=== PATIENT | male | born 1965 | race Caucasian/White ===

== ENCOUNTER 2018-06-22 18:55 | Emergency (ER) | payer MEDICARE ==
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
--- NOTE | 2018-06-22 21:43 | XR ---
EXAMINATION TYPE: XR chest 2V DATE OF EXAM: 06/22/2018 COMPARISON: NONE HISTORY: Cough TECHNIQUE: Frontal and lateral views of the chest are obtained. FINDINGS: Heart and mediastinum are normal. Lungs are clear of consolidation. There is no heart fail ure. Costophrenic angles are clear. Bony thorax is intact. IMPRESSION: No active cardiopulmonary disease. Normal heart.
--- NOTE | 2018-06-22 21:44 | XR ---
EXAMINATION TYPE: XR knee complete LT DATE OF EXAM: 06/22/2018 COMPARISON: NONE HISTORY: Knee pain TECHNIQUE: 3 views FINDINGS: There is no fracture nor dislocation. Joint spaces are normal. There is no sign of joint ef fusion. IMPRESSION: Negative left knee exam.
--- NOTE | 2018-06-22 22:27 | US ---
EXAMINATION TYPE: US venous doppler duplex LE RT DATE OF EXAM: 06/22/2018 10:15 PM COMPARISON: NONE CLINICAL HISTORY: Pain. Right leg pain and edema SIDE PERFORMED: Right TECHNIQUE: The lower extremity deep venous system is examined utilizing real time linear array sonog pauline with graded compression, doppler sonography and color-flow sonography. VESSELS IMAGED: External Iliac Vein (EIV) Common Femoral Vein Deep Femoral Vein Greater Saphenous Vein * Femoral Vein Popliteal Vein Small Saphenous Vein * Proximal Calf Veins (* superficial vessels) Right Leg: Negative for DVT No evidence of DVT right leg. IMPRESSION: Normal exam.
[2018-06-23 02:26] VITALS: BP 128/75; PULSE 71; RESP 18; TEMP 98.8
== END 2018-06-22 23:12 | disposition home or self-care (01) ==
LOC: EC 18:55
DX: J20.9 Acute bronchitis, unspecified (principal); M25.562 Pain in left knee; S90.01XA Contusion of right ankle, initial encounter; S90.31XA Contusion of right foot, initial encounter; M79.89 Other specified soft tissue disorders; G62.9 Polyneuropathy, unspecified; F32.9 Major depressive disorder, single episode, unspecified; F41.9 Anxiety disorder, unspecified; F17.200 Nicotine dependence, unspecified, uncomplicated; Z79.899 Other long term (current) drug therapy; Z88.5 Allergy status to narcotic agent; Z86.14 Personal history of Methicillin resistant Staphylococcus aureus infection; X58.XXXA Exposure to other specified factors, initial encounter
CPT/HCPCS: 71046; 99284

== ENCOUNTER 2018-06-27 15:17 | Inpatient (IN) | payer MEDICARE ==
[2018-06-27] MEDS ORDERED: methylPREDNISolone SOD SUCCI 125 MG/2 ML VIAL IV STA (15:44)
[2018-06-27] MEDS ORDERED: IPRATROPIUM 0.5 MG/2.5 ML NEBU INHALATION STA (15:44)
[2018-06-27] MEDS ORDERED: SODIUM CHLORIDE 0.9% 500 ML IV STA (15:44)
[2018-06-27] MEDS ORDERED: ALBUTEROL NEBULIZED 2.5 MG/3 ML INHALATION STA (15:44)
[2018-06-27] MEDS ORDERED: GABAPENTIN 400 MG CAP PO STA (15:45)
--- NOTE | 2018-06-27 16:05 | ED ---
General Adult HPI - General Source: patient, RN notes reviewed, old records reviewed Mode of arrival: wheelchair Limitations: no limitations <Rudolph Sultana - Last Filed: 06/27/18 16:53> <Juan C Encarnacion - Last Filed: 06/27/18 18:36> - General Chief complaint: Chest Pain Stated complaint: SOB/chest tightness Time Seen by Provider: 06/27/18 15:40 - History of Present Illness Initial comments: 53-year-old male presenting for evaluation of cough and dyspnea. Patient complains of worsening dyspnea over the past 2 days. He states he's had a cough for approximately 4 days. He is a current smoker. He is in a rehabilitation program for alcoholism. Last drink was approximately 30 days ago. States his cough is productive of green to yellow sputum. He does report subjective fever and chills. He also complains of central chest pain. Denies any radiating symptoms to his pain. Pain is sharp and worse with cough. Denies lower extremity pain or swelling. Denies nausea vomiting or diarrhea. ( Rudolph Sultana) - Related Data Home Medications Medication Instructions Recorded Confirmed DULoxetine HCL [Cymbalta] 60 mg PO DAILY 06/22/18 06/27/18 Gabapentin [Neurontin] 1,200 mg PO TID 06/22/18 06/27/18 Previous Rx's Medication Instructions Recorded Naproxen [Naprosyn] 500 mg PO BID #20 tablet 06/22/18 Allergies Allergy/AdvReac Type Severity Reaction Status Date / Time hydromorphone [From Dilaudid] AdvReac psychosis Verified 06/27/18 16:14 Review of Systems ROS Other: All systems not noted in ROS Statement are negative. <Rudolph Sultana - Last Filed: 06/27/18 16:53> ROS Other: All systems not noted in ROS Statement are negative. <Juan C Encarnacion - Last Filed: 06/27/18 18:36> ROS Statement: Those systems with pertinent positive or pertinent negative responses have been documented in the HPI. Past Medical History Additional Past Medical History / Comment(s): etoh abuse (sober x 1 month,) back pain, neuropathy History of Any Multi-Drug Resistant Organisms: MRSA Date of last positivie culture/infection: greater than 5 years MDRO Source:: chest Additional Past Surgical History / Comment(s): tumor rescetion c-6 Past Psychological History: Anxiety, Depression Smoking Status: Current every day smoker Past Alcohol Use History: Abuse, Daily Past Drug Use History: None Reported <Rudolph Sultana - Last Filed: 06/27/18 16:53> General Exam Limitations: no limitations General appearance: alert, in no apparent distress Head exam: Present: atraumatic, normocephalic Eye exam: Present: normal appearance, PERRL ENT exam: Present: normal exam Neck exam: Present: normal inspection. Absent: tenderness, meningismus Respiratory exam: Present: respiratory distress, wheezes, rhonchi, chest wall tenderness, decreased breath sounds Cardiovascular Exam: Present: regular rate, normal rhythm GI/Abdominal exam: Present: soft. Absent: distended, tenderness Extremities exam: Present: normal inspection, normal capillary refill. Absent: pedal edema Back exam: Present: normal inspection, full ROM Neurological exam: Present: alert, oriented X3 Psychiatric exam: Present: normal affect, normal mood Skin exam: Present: warm, dry, intact. Absent: cyanosis, diaphoretic <Rudolph Sultana - Last Filed: 06/27/18 16:53> Course <Rudolph Sultana - Last Filed: 06/27/18 16:53> <Juan C Encarnacion - Last Filed: 06/27/18 18:36> Vital Signs 06/27/18 06/27/18 06/27/18 15:20 15:59 16:00 Temperature 98.2 F Pulse Rate 90 90 90 Respiratory 18 20 Rate Blood Pressure 102/63 121/68 O2 Sat by Pulse 86 L 90 L Oximetry 06/27/18 06/27/18 06/27/18 16:24 17:00 18:00 Temperature Pulse Rate 114 H 87 88 Respiratory 20 20 Rate Blood Pressure 126/64 114/65 O2 Sat by Pulse 92 L 87 L Oximetry - Reevaluation(s) Reevaluation #1: 06/27/18 1700 Patient's care is signed out at shift change to Dr. Encarnacion. (Rudolph Sultana) 06/27/18 18:34 Patient does meet sepsis criteria diagnosed at 1834. Blood culture and lactic acid and IV antibiotics have been ordered. (Juan C Encarnacion) EKG Findings - EKG Comments: EKG Findings:: EKG: Normal sinus rhythm, rate of 90, MO interval 116, QRS duration 90, QTC 413, no ST segment elevation or depression. <Rudolph Sultana - Last Filed: 06/27/18 16:53> Medical Decision Making - Lab Data Result diagrams: 06/27/18 16:05 06/27/18 16:05 <Rudolph Sultana - Last Filed: 06/27/18 16:53> - Lab Data Result diagrams: 06/27/18 16:05 06/27/18 16:05 - Radiology Data Radiology results: report reviewed (CT angios of the chest is limited for pulmonary emboli diagnosis. No central pulmonary embolism. Multifocal bilateral airspace disease is present. Favored pneumonia.), image reviewed (Two -view chest x-ray shows bilateral airspace disease.) <Juan C Encarnacion - Last Filed: 06/27/18 18:36> - Medical Decision Making Patient reevaluated by myself, Dr. Encarnacion. Patient resting comfortably in bed. Patient did take his oxygen off and desaturated into the 80s. Lung sounds with bilateral wheezing. Patient states he has been having short of breath and cough and subjective fevers for several days. Patient is updated on results and plan. Case was discussed in detail with Dr. Paul with [facility], who will admit for hospital call. (Juan C Encarnacion) - Lab Data Lab Results 06/27/18 06/27/18 06/27/18 Range/Units 16:05 16:05 16:05 WBC 10.9 H (3.8-10.6) k/uL RBC 4.20 L (4.30-5.90) m/uL Hgb 13.1 (13.0-17.5) gm/dL Hct 40.2 (39.0-53.0) % MCV 95.9 (80.0-100.0) fL MCH 31.2 (25.0-35.0) pg MCHC 32.6 (31.0-37.0) g/dL RDW 13.3 (11.5-15.5) % Plt Count 208 (150-450) k/uL Neutrophils % 85 % Lymphocytes % 6 % Monocytes % 7 % Eosinophils % 1 % Basophils % 0 % Neutrophils # 9.3 H (1.3-7.7) k/uL Lymphocytes # 0.6 L (1.0-4.8) k/uL Monocytes # 0.7 (0-1.0) k/uL Eosinophils # 0.1 (0-0.7) k/uL Basophils # 0.0 (0-0.2) k/uL PT (9.0-12.0) sec INR (<1.2) APTT (22.0-30.0) sec D-Dimer (<0.60) mg/L FEU Sodium 140 (137-145) mmol/L Potassium 4.3 (3.5-5.1) mmol/L Chloride 105 (98-107) mmol/L Carbon Dioxide 28 (22-30) mmol/L Anion Gap 7 mmol/L BUN 15 (9-20) mg/dL Creatinine 0.70 (0.66-1.25) mg/dL Est GFR (CKD-EPI)AfAm >90 (>60 ml/min/1.73 sqM) Est GFR (CKD-EPI)NonAf >90 (>60 ml/min/1.73 sqM) Glucose 93 (74-99) mg/dL Plasma Lactic Acid Adair (0.7-2.0) mmol/L Calcium 8.9 (8.4-10.2) mg/dL Magnesium 1.9 (1.6-2.3) mg/dL Total Bilirubin 1.0 (0.2-1.3) mg/dL AST 46 (17-59) U/L ALT 88 H (21-72) U/L Alkaline Phosphatase 215 H (38-126) U/L Total Creatine Kinase 121 (55-170) U/L CK-MB (CK-2) 1.3 (0.0-2.4) ng/mL CK-MB (CK-2) Rel Index 1.1 Troponin I 0.020 (0.000-0.034) ng/mL NT-Pro-B Natriuret Pep pg/mL Total Protein 5.8 L (6.3-8.2) g/dL Albumin 3.4 L (3.5-5.0) g/dL 06/27/18 06/27/18 06/27/18 Range/Units 16:05 16:05 16:05 WBC (3.8-10.6) k/uL RBC (4.30-5.90) m/uL Hgb (13.0-17.5) gm/dL Hct (39.0-53.0) % MCV (80.0-100.0) fL MCH (25.0-35.0) pg MCHC (31.0-37.0) g/dL RDW (11.5-15.5) % Plt Count (150-450) k/uL Neutrophils % % Lymphocytes % % Monocytes % % Eosinophils % % Basophils % % Neutrophils # (1.3-7.7) k/uL Lymphocytes # (1.0-4.8) k/uL Monocytes # (0-1.0) k/uL Eosinophils # (0-0.7) k/uL Basophils # (0-0.2) k/uL PT 10.3 (9.0-12.0) sec INR 1.1 (<1.2) APTT 25.5 (22.0-30.0) sec D-Dimer 1.40 H (<0.60) mg/L FEU Sodium (137-145) mmol/L Potassium (3.5-5.1) mmol/L Chloride (98-107) mmol/L Carbon Dioxide (22-30) mmol/L Anion Gap mmol/L BUN (9-20) mg/dL Creatinine (0.66-1.25) mg/dL Est GFR (CKD-EPI)AfAm (>60 ml/min/1.73 sqM) Est GFR (CKD-EPI)NonAf (>60 ml/min/1.73 sqM) Glucose (74-99) mg/dL Plasma Lactic Acid Adair 1.5 (0.7-2.0) mmol/L Calcium (8.4-10.2) mg/dL Magnesium (1.6-2.3) mg/dL Total Bilirubin (0.2-1.3) mg/dL AST (17-59) U/L ALT (21-72) U/L Alkaline Phosphatase (38-126) U/L Total Creatine Kinase (55-170) U/L CK-MB (CK-2) (0.0-2.4) ng/mL CK-MB (CK-2) Rel Index Troponin I (0.000-0.034) ng/mL NT-Pro-B Natriuret Pep 1810 pg/mL Total Protein (6.3-8.2) g/dL Albumin (3.5-5.0) g/dL Critical Care Time Critical Care Time: Yes Total Critical Care Time: 32 <Juan C Encarnacion - Last Filed: 06/27/18 18:36> Disposition <Rudolph Sultana - Last Filed: 06/27/18 16:53> Is patient prescribed a controlled substance at d/c from ED?: No Decision Time: 18:36 <Juan C Encarnacion - Last Filed: 06/27/18 18:36> Clinical Impression: Pneumonia, Sepsis Disposition: ADMITTED IP TO THIS HOSP Condition: Serious Referrals: None,Stated [Primary Care Provider] - 1-2 days
[2018-06-27] MEDS ORDERED: ACETAMINOPHEN TAB 325 MG TAB PO STA (16:20)
[2018-06-27 16:23] LABS: Basophils % (A) 0 %; Eosinophils # (A) 0.1 k/uL (0-0.7); Eosinophils % (A) 1 %; HCT 40.2 % (39.0-53.0); HGB 13.1 gm/dL (13.0-17.5); Lymphocytes # (A) 0.6 k/uL (1.0-4.8); Lymphocytes % (A) 6 %; MCH 31.2 pg (25.0-35.0); MCHC 32.6 g/dL (31.0-37.0); MCV 95.9 fL (80.0-100.0); Mean Platelet Volume 8.5; Monocytes # (A) 0.7 k/uL (0-1.0); Monocytes % (A) 7 %; Neutrophils # (A) 9.3 k/uL (1.3-7.7); Neutrophils % (A) 85 %; Platelet Count 208 k/uL (150-450); RDW 13.3 % (11.5-15.5); WBC 10.9 k/uL (3.8-10.6)
[2018-06-27 16:30] LABS: ALT 88 U/L (21-72); AST 46 U/L (17-59); Albumin 3.4 g/dL (3.5-5.0); Alkaline Phosphatase 215 U/L (38-126); Anion Gap 7 mmol/L; Blood Urea Nitrogen 15 mg/dL (9-20); Calcium 8.9 mg/dL (8.4-10.2); Carbon Dioxide 28 mmol/L (22-30); Chloride 105 mmol/L (98-107); Glucose 93 mg/dL (74-99); Magnesium 1.9 mg/dL (1.6-2.3); Potassium 4.3 mmol/L (3.5-5.1); Sodium 140 mmol/L (137-145); Total Protein 5.8 g/dL (6.3-8.2)
[2018-06-27 16:37] LABS: INR 1.1 (<1.2); Partial Thromboplastin Time 25.5 sec (22.0-30.0); Prothrombin Time 10.3 sec (9.0-12.0)
[2018-06-27 16:44] LABS: Creatine Kinase MB 1.3 ng/mL (0.0-2.4); Troponin I 0.02 ng/mL (0.000-0.034)
[2018-06-27 16:52] LABS: D-Dimer 1.4 mg/L FEU (<0.60)
[2018-06-27] MEDS ORDERED: AZITHROMYCIN 500 MG in DEXTROSE 5% IN WATER 250 ML IVPB STA ×2 (16:52)
--- NOTE | 2018-06-27 16:59 | XR ---
EXAMINATION TYPE: XR chest 2V DATE OF EXAM: 06/27/2018 COMPARISON: Chest radiograph 06/22/2018 HISTORY: Chest pain TECHNIQUE: Frontal and lateral views of the chest are obtained. FINDINGS: Multifocal bilateral airspace opacities are evident. No pleural effusion or pneumothorax. The cardiac conduction device is unchanged. Inferior portion of cervical fusion hardware is seen. Oss eous structures are unchanged. IMPRESSION: Interval development of multifocal bilateral airspace disease. Infectious etiology such as multifocal pneumonia should be considered. Alternatively pulmonary edema may have a similar appearance and give n the short interval of development should also be considered.
--- NOTE | 2018-06-27 17:40 | CT ---
EXAMINATION TYPE: CT angio chest DATE OF EXAM: 06/27/2018 COMPARISON: Chest radiograph earlier the same day. HISTORY: Chest tightness. CT DLP: 373.9 mGycm. Automated Exposure Control for Dose Reduction was Utilized. CONTRAST: CTA scan of the thorax is performed with IV Contrast, patient injected with 73 mL of Isovue 370, pulm onary embolism protocol. MIP Images are created on CT scanner and reviewed. FINDINGS: PULMONARY ARTERIES: Suboptimal opacification of the main pulmonary artery and its branches. This limi ts evaluation. There is no central pulmonary arterial filling defect. The main pulmonary artery is en larged measuring up to 3.3 cm. LUNGS: Multifocal bilateral airspace disease is evident. There is no pleural effusion or pneumothorax seen. The tracheobronchial tree is patent. MEDIASTINUM: Some conglomerate adenopathy is present in the subcarinal region as well as in the AP wi ndow. Bilateral hilar nodes are present which measure up to 1.1 cm. No cardiomegaly or pericardial ef fusion is seen. The azygos vein is prominent. OTHER: The ascending and descending thoracic aorta are within normal limits. No suspicious osseous le sions. No fractures. IMPRESSION: 1. Limited evaluation of the pulmonary arteries secondary to timing of the bolus. No central pulmonar y embolism. Evaluation of the segmental and subsegmental pulmonary arteries remains equivocal. 2. Multifocal bilateral airspace disease. Multifocal pneumonia is the favored of the pulmonary edema may have a similar appearance. 3. Hilar and mediastinal adenopathy favoring infectious etiology. 4. Minimal enlargement of main pulmonary artery may reflect underlying pulmonary arterial hypertensio n.
[2018-06-27] MEDS ORDERED: cefTRIAXone IN SWFI 1,000 MG/10 ML SYRINGE IVP STA (18:36)
[2018-06-27] MEDS ORDERED: PNEUMONIA PROTOCOL UTILIZED 1 EACH MISC PO PRN (18:36)
[2018-06-27] MEDS ORDERED: THIAMINE 100 MG/ML 2 ML VIAL IM STA (18:38)
[2018-06-27] MEDS ORDERED: LORazepam 2 MG/ML INJ IV PRN ×2 (18:38)
[2018-06-27] MEDS: IPRATROPIUM-ALBUTEROL 3 ML NEB INHALATION SCH (19:55)
[2018-06-27] MEDS ORDERED: NALOXONE 0.4 MG/ML 1 ML VIAL IV PRN (20:21)
--- NOTE | 2018-06-27 20:40 | P.HPIM ---
History of Present Illness H&P Date: 06/27/18 Chief Complaint: cough, SOB 53 year old male with history of alcohol abuse, currently at rehab facility and sober for 30 days. Patient presented due to worsening cough and SOB over the past 2-4 days. Patient reports symptoms of URI that started 8 days ago as sore throat and congested sinuses along with mild cough, however over the past 4 days, his cough has worsened , and now associated with greenish yellowish sputum, fevers and chills. He also reports central chest pain pleuritic in nature with coughing , and over the past 2 days he noticed wheezing and dyspnea. He denies any history of COPD, intubation or wheezing. he has never used inhalers in his life. other than generalized body aches, he claims to be healthy. He has been admitted to alcohol rehab facility for the past 2 weeks, and his last drink of alcohol was 30 days ago. Patient reports sick contacts at the rehab facility. no recent traveling. denies any headache, nausea, vomiting, GI bleeidng, abd pain, changes in his bowel or urinary habits. he bunny any changes in his vision or hearing, denies any new focal neurologic deficits. Review of Systems Pertinent positives as noted in HPI. All other systems were reviewed and are negative Past Medical History Additional Past Medical History / Comment(s): etoh abuse (sober x 1 month,) back pain, neuropathy History of Any Multi-Drug Resistant Organisms: MRSA Date of last positivie culture/infection: greater than 5 years MDRO Source:: chest Additional Past Surgical History / Comment(s): tumor rescetion c-6 Past Psychological History: Anxiety, Depression Smoking Status: Current every day smoker Past Alcohol Use History: Abuse, Daily Past Drug Use History: None Reported - Past Family History Family History Unknown: (Family family) Additional Family Medical History / Comment(s): Denies history of premature CAD Medications and Allergies Home Medications Medication Instructions Recorded Confirmed Type DULoxetine HCL [Cymbalta] 60 mg PO DAILY 06/22/18 06/27/18 History Gabapentin [Neurontin] 1,200 mg PO TID 06/22/18 06/27/18 History Naproxen [Naprosyn] 500 mg PO BID #20 tablet 06/22/18 06/27/18 Rx Allergies Allergy/AdvReac Type Severity Reaction Status Date / Time hydromorphone [From Dilaudid] AdvReac psychosis Verified 06/27/18 16:14 Physical Exam Vitals: Vital Signs Temp Pulse Resp BP Pulse Ox 06/27/18 20:07 100 06/27/18 19:56 100 06/27/18 19:10 98.3 F 78 20 120/60 93 L 06/27/18 18:00 88 20 114/65 87 L 06/27/18 17:00 87 20 126/64 92 L 06/27/18 16:24 114 H 06/27/18 16:00 90 20 121/68 90 L 06/27/18 15:59 90 06/27/18 15:20 98.2 F 90 18 102/63 86 L Intake and Output 06/27/18 06/27/18 06/27/18 06:59 14:59 22:59 Other: Weight 99.79 kg Constitutional: No acute distress, conversant, pleasant Eyes: Anicteric sclerae, moist conjunctiva, no lid-lag Pupils equal round reactive to light ENMT: NC/AT Oropharynx clear, no erythema, or exudates tenderness to palpation of the maxillary and frontal sinuses worse on the right than left Neck: Supple, FROM, no masses, or JVD No carotid bruits No thyromegaly Lungs: coarse vesicular breathing more on the left compared to the right , anteriorly. no wheezing Clear to percussion Normal respiratory effort, no accessory muscle use Cardiovascular: Heart regular in rate and rhythm, No murmurs, gallops, or rubs No peripheral edema Abdominal: Soft Nontender, no guarding, rebound or rigidity Abdomen moving with respiration Normoactive bowel sounds No hepatomegaly, No splenomegaly No palpable mass No abdominal wall hernia noted Skin: Normal temperature, tone, texture, turgor No induration No subcutaneous nodules No rash, lesions No ulcers Extremities: No digital cyanosis No clubbing Pedal pulses intact and symmetrical Radial pulses intact and symmetrical No calf tenderness Psychiatric: Alert and oriented to person, place and time Appropriate affect fair judgment Neuro Muscles Strength 5/5 in all 4 extremities Sensation to light touch grossly present throughout Cranial nerves II-XII grossly intact No focal sensory deficits Lymphatics: no palpable cervical or supraclavicular , or inguinal lymph nodes Results CBC & Chem 7: 06/27/18 16:05 06/27/18 16:05 Labs: Abnormal Lab Results - Last 24 Hours (Table) 06/27/18 06/27/18 06/27/18 Range/Units 16:05 16:05 16:05 WBC 10.9 H (3.8-10.6) k/uL RBC 4.20 L (4.30-5.90) m/uL Neutrophils # 9.3 H (1.3-7.7) k/uL Lymphocytes # 0.6 L (1.0-4.8) k/uL D-Dimer 1.40 H (<0.60) mg/L FEU ALT 88 H (21-72) U/L Alkaline Phosphatase 215 H (38-126) U/L Total Protein 5.8 L (6.3-8.2) g/dL Albumin 3.4 L (3.5-5.0) g/dL Assessment and Plan Assessment: 53-year-old male with history of alcohol abuse currently residing at rehab facility for alcohol, patient admitted as an inpatient with anticipated length of stay of more than 2 days for healthcare associated pneumonia requiring IV antibiotics due to multifocal pneumonia and hypoxemia. Patient has low risk for alcohol withdrawal as his most recent alcohol drink was more than 30 days ago. CTA done in the ED , did not show major pulmonary embolism, however did reveal multifocal infilterates suggestive of pneumonia Plan: Healthcare associated pneumonia, sepsis criteria was not met upon presentation Acute hypoxic respiratory failure due to multifocal pneumonia Patient started on Rocephin and azithromycin Follow-up cultures Oxygen through nasal cannula to keep oxygen saturation above 92% No history of COPD but patient was reported to be wheezing upon presentation Nebulizer as needed Discontinue IV steroids History of alcohol abuse Currently sober for more than 30 days Last drink was more than 30 days Low risk for alcohol withdrawal at this DVT prophylaxis on heparin subcu 3 times a day Heart healthy diet Surrogate decision-maker: Patient's friend Juana Marie [phone] CODE STATUS: Full code Discussed with: Patient, ER, RN Anticipated discharge: 48-[address]: Home or back to alcohol rehab facility A total of 60 minutes was spent on the care of this complex patient more than 50 % of the time was spent in counseling and care coordination.
[2018-06-27 21:08] LABS: Glucose,Whole Blood 171 mg/dL (75-99)
[2018-06-27] MEDS: GABAPENTIN 400 MG CAP PO SCH (21:08)
[2018-06-27] MEDS: LORATADINE-PSEUDOEPH 5-120 MG 1 EACH TAB.ER.12H PO SCH (21:09)
[2018-06-27] MEDS: NAPROXEN 250 MG TAB PO SCH (21:09)
[2018-06-27] MEDS: FAMOTIDINE 20 MG TAB PO SCH (21:09)
[2018-06-28] MEDS: HEPARIN SODIUM,PORCINE 5,000 UNIT/ML 1 ML VIAL SQ SCH ×3 (00:19→15:31)
[2018-06-28] MEDS: IPRATROPIUM-ALBUTEROL 3 ML NEB INHALATION PRN (03:12)
[2018-06-28] MEDS: IPRATROPIUM-ALBUTEROL 3 ML NEB INHALATION SCH ×4 (07:07→18:58)
[2018-06-28 07:13] LABS: Glucose,Whole Blood 156 mg/dL (75-99)
--- NOTE | 2018-06-28 08:41 | XR ---
EXAMINATION TYPE: XR chest 2V DATE OF EXAM: 06/28/2018 COMPARISON: 06/27/2018 TECHNIQUE: PA and lateral views submitted. HISTORY: Shortness of breath Bilateral airspace disease noted. Findings are stable. Underlying interstitial process noted. Hyperin flation suggests COPD. Postsurgical change involving the cervical spine noted and there is a metallic device with leads extending cephalically which are stable. Arthropathy of the shoulders. IMPRESSION: 1. Bilateral interstitial process with multifocal areas of consolidation. Differential diagnosis woul d include pulmonary edema or multifocal pneumonia. Atypical or interstitial pneumonitis in the differ ential diagnosis.
[2018-06-28 08:49] LABS: Basophils % (A) 0 %; Eosinophils % (A) 0 %; HCT 39.9 % (39.0-53.0); HGB 12.7 gm/dL (13.0-17.5); Lymphocytes # (A) 0.8 k/uL (1.0-4.8); Lymphocytes % (A) 5 %; MCH 31.5 pg (25.0-35.0); MCHC 31.9 g/dL (31.0-37.0); Mean Platelet Volume 8.3; Monocytes # (A) 0.5 k/uL (0-1.0); Monocytes % (A) 3 %; Neutrophils # (A) 13.9 k/uL (1.3-7.7); Neutrophils % (A) 91 %; Platelet Count 213 k/uL (150-450); RBC 4.03 m/uL (4.30-5.90); RDW 13.6 % (11.5-15.5); WBC 15.2 k/uL (3.8-10.6)
[2018-06-28] MEDS ORDERED: cefTRIAXone IN SWFI 1,000 MG/10 ML SYRINGE IVP SCH (09:00)
[2018-06-28 09:07] LABS: Anion Gap 7 mmol/L; Blood Urea Nitrogen 17 mg/dL (9-20); Calcium 9.1 mg/dL (8.4-10.2); Carbon Dioxide 28 mmol/L (22-30); Chloride 106 mmol/L (98-107); Glucose 161 mg/dL (74-99); Sodium 141 mmol/L (137-145)
[2018-06-28] MEDS: GABAPENTIN 400 MG CAP PO SCH ×3 (09:58→21:24)
[2018-06-28] MEDS: THIAMINE 100 MG TAB PO SCH ×2 (09:58→18:05)
[2018-06-28] MEDS: MULTIVITAMINS, THERA 1 EACH TAB PO SCH (09:59)
[2018-06-28] MEDS: NICOTINE 14MG/24HR PATCH TRANSDERM SCH (09:59)
[2018-06-28] MEDS: NAPROXEN 250 MG TAB PO SCH ×2 (09:59→20:30)
[2018-06-28] MEDS: DULoxetine HCL 60 MG CAPSULE.DR PO SCH (09:59)
[2018-06-28] MEDS: FAMOTIDINE 20 MG TAB PO SCH ×2 (09:59→20:30)
[2018-06-28] MEDS: LORATADINE-PSEUDOEPH 5-120 MG 1 EACH TAB.ER.12H PO SCH ×2 (09:59→20:30)
[2018-06-28] MEDS ORDERED: VANCOMYCIN IV PER PHARMACY 1 EACH MISC MISCELLANE PRN (10:53)
[2018-06-28] MEDS ORDERED: LEVOFLOXACIN 750MG-D5W PMX 750 MG in DEXTROSE/WATER 1 150ML.BAG IVPB SCH (11:00)
[2018-06-28] MEDS ORDERED: VANCOMYCIN 1,750 MG in SODIUM CHLORIDE 0.9% 500 ML IVPB ONE (12:00)
[2018-06-28] MEDS: methylPREDNISolone SOD SUCCI 125 MG/2 ML VIAL IV SCH ×2 (12:03→18:06)
[2018-06-28 12:09] VITALS: BMI 31.5
[2018-06-28 12:29] LABS: Glucose,Whole Blood 127 mg/dL (75-99)
--- NOTE | 2018-06-28 15:47 | P.CNPUL ---
History of Present Illness Consult date: 06/28/18 Reason for consult: pneumonia History of present illness: 53-year-old male patient, alcoholic, who was undergoing alcohol rehabilitation at [facility], and during his stay at the rehab center the patient became progressively more short of breath and his chest felt more congested and tight and he was having progressive increasing dyspnea cough and chest congestion and wheezing. He was also having some cold chills. He presented to the hospital and he was diagnosed having bilateral pneumonia and he was started on a combination of Rocephin and Zithromax. A pulmonary consultation was requested. I noted that overnight the patient was placed on a Ventimask and currently is on 5 L of oxygen by nasal cannula. He is a congested cough. He was able to give me a small sample of sputum. He is hemodynamically stable. No pleurisy. No hemoptysis. No recurrent pneumonias PMI aspiration. He has had previous MRSA infection, a complication of a previous deep vein stimulator infection that was ultimately taken out. He has still and other stimulator on the right side of his chest. He has issues with chronic pain. 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 This was not a malignant tumor according to him. The patient lives in the [facility] and the patient was undergoing rehabilitation at [facility]. No recurrent pneumonias. Note that he had a computed tomography scan of the chest at the time of admission that showed multifocal bilateral airspace disease without any pleural effusion. The tracheobronchial tree was patent. There was no evidence of any mediastinal lymphadenopathy or clotting. Review of Systems Constitutional: Reports fatigue, Reports fever, Reports weakness Eyes: denies blurred vision, denies bulging eye, denies decreased vision Ears: deny: decreased hearing, ear discharge, earache, tinnitus Ears, nose, mouth and throat: Denies headache, Denies sore throat Cardiovascular: Reports decreased exercise tolerance, Reports dyspnea on exertion, Reports shortness of breath Respiratory: Reports congestion, Reports cough, Reports dyspnea Gastrointestinal: Denies abdominal pain, Denies diarrhea, Denies nausea, Denies vomiting Genitourinary: Reports as per HPI Musculoskeletal: Denies myalgias Musculoskeletal: absent: ankle pain, ankle stiffness, ankle swelling Integumentary: Denies pruritus, Denies rash Neurological: Denies numbness, Denies weakness Psychiatric: Denies anxiety, Denies depression Endocrine: Denies fatigue, Denies weight change Hematologic/Lymphatic: Reports as per HPI Allergic/Immunologic: Reports as per HPI Past Medical History Past Medical History: Neurologic Disorder, Pneumonia Additional Past Medical History / Comment(s): Alcoholism and the patient claims that he hasn't drank alcohol for a month and he was undergoing rehabilitation at [facility]. 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 Chronic anxiety. Chronic depression. Chronic smoker. 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 Past Psychological History: Anxiety, Bipolar, Depression, PTSD Smoking Status: Current every day smoker Past Alcohol Use History: Abuse, Daily Past Drug Use History: None Reported - Past Family History Family Additional Family Medical History / Comment(s): Denies history of premature CAD Medications and Allergies Home Medications Medication Instructions Recorded Confirmed Type DULoxetine HCL [Cymbalta] 60 mg PO DAILY 06/22/18 06/27/18 History Gabapentin [Neurontin] 1,200 mg PO TID 06/22/18 06/27/18 History Naproxen [Naprosyn] 500 mg PO BID #20 tablet 06/22/18 06/27/18 Rx Allergies Allergy/AdvReac Type Severity Reaction Status Date / Time hydromorphone [From Dilaudid] AdvReac psychosis Verified 06/27/18 16:14 Physical Exam Vitals: Vital Signs Temp Pulse Pulse Resp BP BP Pulse Ox 06/28/18 15:28 95 18 06/28/18 15:18 94 18 06/28/18 15:00 99.1 F 101 H 18 134/119 90 L 06/28/18 11:16 96 06/28/18 11:06 96 94 L 06/28/18 08:00 20 06/28/18 06:26 98.2 F 67 21 120/77 96 06/28/18 05:36 96.8 F L 71 26 H 111/63 96 06/28/18 03:27 110 H 06/28/18 03:13 111 H 06/27/18 23:57 98.7 F 84 20 123/64 95 06/27/18 20:37 26 H 06/27/18 20:07 100 06/27/18 19:56 100 06/27/18 19:10 98.3 F 78 20 120/60 93 L 06/27/18 18:00 88 20 114/65 87 L 06/27/18 17:00 87 20 126/64 92 L 06/27/18 16:24 114 H 06/27/18 16:00 90 20 121/68 90 L 06/27/18 15:59 90 Intake and Output 06/28/18 06/28/18 06/28/18 06:59 14:59 22:59 Other: # Voids 2 Weight 99.79 kg Gen. appearance the patient is a mild degree of respiratory distress on high flow oxygen by nasal cannula lites 5 L/m Head exam was generally normal. There was no scleral icterus or corneal arcus. Mucous membranes were moist. Neck was supple and without jugular venous distension, thyromegaly, or carotid bruits. Carotids were easily palpable bilaterally. There was no adenopathy. Lungs sounds are diminished bilaterally along with some crackles heard throughout the lung herrera and scattered expiratory wheezes and rhonchi. Cardiac exam revealed the PMI to be normally situated and sized. The rhythm was regular and no extrasystoles were noted during several minutes of auscultation. The first and second heart sounds were normal and physiologic splitting of the second heart sound was noted. There were no murmurs, rubs, clicks, or gallops. Abdominal exam revealed normal bowel sounds. The abdomen was soft, non-tender, and without masses, organomegaly, or appreciable enlargement of the abdominal aorta. Examination of the extremities revealed easily palpable radial, femoral and pedal pulses. There was no cyanosis, clubbing or edema. Examination of the skin revealed no evidence of significant rashes, suspicious appearing nevi or other concerning lesions. Neurologically the patient is awake and alert and there is no focal neurological deficit. Results - Laboratory Findings CBC and BMP: 06/28/18 08:02 06/28/18 08:02 PT/INR, D-dimer PT 10.3 sec (9.0-12.0) 06/27/18 16:05 INR 1.1 (<1.2) 06/27/18 16:05 D-Dimer 1.40 mg/L FEU (<0.60) H 06/27/18 16:05 Abnormal lab findings: Abnormal Labs 06/27/18 06/27/18 06/27/18 16:05 16:05 16:05 WBC 10.9 H RBC 4.20 L Hgb Neutrophils # 9.3 H Lymphocytes # 0.6 L D-Dimer 1.40 H Creatinine Glucose POC Glucose (mg/dL) ALT 88 H Alkaline Phosphatase 215 H Total Protein 5.8 L Albumin 3.4 L 06/27/18 06/28/18 06/28/18 20:21 07:00 08:02 WBC 15.2 H RBC 4.03 L Hgb 12.7 L Neutrophils # 13.9 H Lymphocytes # 0.8 L D-Dimer Creatinine Glucose POC Glucose (mg/dL) 171 H 156 H ALT Alkaline Phosphatase Total Protein Albumin 06/28/18 06/28/18 08:02 12:28 WBC RBC Hgb Neutrophils # Lymphocytes # D-Dimer Creatinine 0.65 L Glucose 161 H POC Glucose (mg/dL) 127 H ALT Alkaline Phosphatase Total Protein Albumin - Diagnostic Findings Chest x-ray: image reviewed Assessment and Plan Plan: 1 acute bilateral pneumonia with patchy airspace disease right more than left. This is likely a bacterial pneumonia. Consider staphylococcal pneumonia including MRSA knowing that the patient has been in a rehab facility and the patient has been exposed and infected with MRSA in the past. 2 acute hypoxic respiratory failure secondary to above 3 alcoholism 4 alcohol rehabilitation at [facility] 5 chronic back pain 6 deep brain stimulator for chronic back pain management 7 smoker Plan Stop the Rocephin and Zithromax. Switch this patient a combination of vancomycin and Levaquin. This will give the patient MRSA coverage in addition to gram-negative and atypical. Check urine Legionella urine antigen. Repeat chest x-ray with next 24 hours. Attempts to wean off FiO2 as tolerated to maintain a saturation above 90%. Continue bronchodilators. Start the patient IV Solu Medrol 60 g every 6 hours knowing that he has developed significant amount of bronchospasm and wheezing. We'll continue to follow and consider bronchoscopy if there is no improvement.
[2018-06-28 16:50] LABS: Glucose,Whole Blood 154 mg/dL (75-99)
[2018-06-28] MEDS ORDERED: AZITHROMYCIN 500 MG TAB PO SCH (18:00)
--- NOTE | 2018-06-28 19:26 | P.PN ---
Subjective Progress Note Date: 06/28/18 Patient was seen and examined. Patient continues to complain of productive cough and SOB. He denies headache, LE edema, fever, chills, N/V, chest pain, palpitations, changes in urination or bowel habits Objective - Vital Signs Vital signs: Vital Signs Temp 98.1 F 06/28/18 15:52 Pulse 92 06/28/18 15:52 Resp 18 06/28/18 15:52 BP 120/64 06/28/18 15:52 Pulse Ox 95 06/28/18 15:52 Intake & Output 06/27/18 06/28/18 06/28/18 18:59 06:59 18:59 Weight 99.79 kg 99.79 kg Other: # Voids 2 - Constitutional General appearance: Present: average body habitus, cooperative, no acute distress - EENT Eyes: Present: EOMI, normal appearance - Neck Neck: Absent: lymphadenopathy - Respiratory Respiratory: bilateral: rhonchi (coarse BS bilaterally) - Cardiovascular Rhythm: regular Heart sounds: normal: S1, S2 Abnormal Heart Sounds: Absent: systolic murmur, diastolic murmur, rub, click - Gastrointestinal General gastrointestinal: Absent: tenderness - Integumentary Integumentary: Present: normal. Absent: cyanotic - Neurologic Neurologic: Absent: focal deficits - Musculoskeletal Musculoskeletal: Present: gait normal - Psychiatric Psychiatric: Present: A&O x's 3, appropriate affect, intact judgment & insight - Labs CBC & Chem 7: 06/28/18 08:02 06/28/18 08:02 Labs: Abnormal Lab Results - Last 24 Hours (Table) 06/27/18 06/28/18 06/28/18 Range/Units 20:21 07:00 08:02 WBC 15.2 H (3.8-10.6) k/uL RBC 4.03 L (4.30-5.90) m/uL Hgb 12.7 L (13.0-17.5) gm/dL Neutrophils # 13.9 H (1.3-7.7) k/uL Lymphocytes # 0.8 L (1.0-4.8) k/uL Creatinine (0.66-1.25) mg/dL Glucose (74-99) mg/dL POC Glucose (mg/dL) 171 H 156 H (75-99) mg/dL 06/28/18 06/28/18 06/28/18 Range/Units 08:02 12:28 16:44 WBC (3.8-10.6) k/uL RBC (4.30-5.90) m/uL Hgb (13.0-17.5) gm/dL Neutrophils # (1.3-7.7) k/uL Lymphocytes # (1.0-4.8) k/uL Creatinine 0.65 L (0.66-1.25) mg/dL Glucose 161 H (74-99) mg/dL POC Glucose (mg/dL) 127 H 154 H (75-99) mg/dL Microbiology - Last 24 Hours (Table) 06/28/18 03:18 Gram Stain - Preliminary Sputum Sputum Culture - Preliminary Assessment and Plan (1) Pneumonia Narrative/Plan: * CXR confirms multifocal bilateral airspace disease. CTA excluded PE (D-Dimer elevated to 1.40) but confirms findings similar to CXR but unable to exclude pulmonary edema. * Pulm recs appreciated - DC Ceftriaxone and Zithromax and start Vancomycin and Levaquin, CXR within 24H, Legionella UAg, continue bronchodilators, start Solumedrol 60g IV Q6H. * Plan: Continue O2 per NC to maintain O2 sat > 92%. Continue DuoNeb Q4H scheduled/PRN. Antibiotics changed as per Pulmonary recs. FU CXR, Legionella UAg , SputumCx, MRSA screen. Current Visit: Yes Status: Acute Code(s): J18.9 - PNEUMONIA, UNSPECIFIED ORGANISM SNOMED Code(s): 425048016 (2) H/O ETOH abuse Narrative/Plan: * Last drink 30 days ago. Low risk for withdrawal. CIWA protocol with Ativan IV PRN for withdrawal. Continue Cymbalta 60 mg daily, Gabapentin 1200 mg PO TID. Current Visit: Yes Status: Acute Code(s): Z87.898 - PERSONAL HISTORY OF OTHER SPECIFIED CONDITIONS SNOMED Code(s): 198895379 Plan: Leukocytosis: WBC uptrending from 10.9 to 15.2 with shift. Likely related to IV steroid use. Will continue to monitor. Transaminitis: ALT 88 ALK-P 215. AST and T. Bili within normal limits. Likely related to heavy EtOH consumption. Will continue to monitor. DVT/GI Prophylaxis: Pepcid 20 mg PO BID and Heparin 5000 units TID.
[2018-06-28] MEDS: VANCOMYCIN 1,500 MG in SODIUM CHLORIDE 0.9% 250 ML IVPB SCH (20:29)
[2018-06-28 20:49] LABS: Glucose,Whole Blood 156 mg/dL (75-99)
[2018-06-28] MEDS: guaiFENesin 600 MG TABLET.ER PO SCH (21:24)
[2018-06-29] MEDS: methylPREDNISolone SOD SUCCI 125 MG/2 ML VIAL IV SCH ×4 (00:40→17:52)
[2018-06-29] MEDS: HEPARIN SODIUM,PORCINE 5,000 UNIT/ML 1 ML VIAL SQ SCH ×3 (00:41→15:10)
[2018-06-29] MEDS: IPRATROPIUM-ALBUTEROL 3 ML NEB INHALATION PRN (01:44)
[2018-06-29] MEDS: VANCOMYCIN 1,500 MG in SODIUM CHLORIDE 0.9% 250 ML IVPB SCH ×3 (04:53→20:39)
[2018-06-29] MEDS: IPRATROPIUM-ALBUTEROL 3 ML NEB INHALATION SCH ×6 (07:10→19:09)
[2018-06-29 07:16] LABS: Glucose,Whole Blood 149 mg/dL (75-99)
[2018-06-29] MEDS: LEVOFLOXACIN 750 MG TAB PO SCH (07:50)
[2018-06-29] MEDS: NICOTINE 14MG/24HR PATCH TRANSDERM SCH (07:50)
[2018-06-29] MEDS: DULoxetine HCL 60 MG CAPSULE.DR PO SCH (07:51)
[2018-06-29] MEDS: GABAPENTIN 400 MG CAP PO SCH ×3 (07:51→20:41)
[2018-06-29] MEDS: guaiFENesin 600 MG TABLET.ER PO SCH ×2 (07:51→20:40)
[2018-06-29] MEDS: FAMOTIDINE 20 MG TAB PO SCH ×2 (07:51→20:40)
[2018-06-29] MEDS: LORATADINE-PSEUDOEPH 5-120 MG 1 EACH TAB.ER.12H PO SCH ×2 (07:52→20:41)
[2018-06-29] MEDS: MULTIVITAMINS, THERA 1 EACH TAB PO SCH (07:54)
[2018-06-29] MEDS: NAPROXEN 250 MG TAB PO SCH ×2 (08:35→20:41)
--- NOTE | 2018-06-29 08:41 | XR ---
EXAMINATION TYPE: XR chest 2V DATE OF EXAM: 06/29/2018 COMPARISON: 06/28/2018 TECHNIQUE: PA and lateral views submitted. HISTORY: Shortness of breath FINDINGS: Bilateral airspace disease noted. Findings are stable. Underlying interstitial process noted. Hyperin flation suggests COPD. Postsurgical change involving the cervical spine noted and there is a metallic device with leads extending cephalically which are stable. Arthropathy of the shoulders. IMPRESSION: 1. Bilateral interstitial process with multifocal areas of consolidation. Differential diagnosis woul d include pulmonary edema or multifocal pneumonia. Atypical or interstitial pneumonitis in the differ ential diagnosis. Findings appear stable.
[2018-06-29 08:57] LABS: HCT 39.5 % (39.0-53.0); HGB 12.4 gm/dL (13.0-17.5); MCH 30.7 pg (25.0-35.0); MCHC 31.3 g/dL (31.0-37.0); MCV 98.2 fL (80.0-100.0); Mean Platelet Volume 8.4; Platelet Count 266 k/uL (150-450); RBC 4.03 m/uL (4.30-5.90); RDW 13.8 % (11.5-15.5); WBC 19.3 k/uL (3.8-10.6)
--- NOTE | 2018-06-29 09:38 | P.PN ---
Subjective Progress Note Date: 06/29/18 53-year-old male patient, alcoholic, who was undergoing alcohol rehabilitation at [place], and during his stay at the rehab center the patient became progressively more short of breath and his chest felt more congested and tight and he was having progressive increasing dyspnea cough and chest congestion and wheezing. He was also having some cold chills. He presented to the hospital and he was diagnosed having bilateral pneumonia and he was started on a combination of Rocephin and Zithromax. A pulmonary consultation was requested. I noted that overnight the patient was placed on a Ventimask and currently is on 5 L of oxygen by nasal cannula. He is a congested cough. He was able to give me a small sample of sputum. He is hemodynamically stable. No pleurisy. No hemoptysis. No recurrent pneumonias PMI aspiration. He has had previous MRSA infection, a complication of a previous deep vein stimulator infection that was ultimately taken out. He has still and other stimulator on the right side of his chest. He has issues with chronic pain. 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 This was not a malignant tumor according to him. The patient lives in the [facility] and the patient was undergoing rehabilitation at [place]. No recurrent pneumonias. Note that he had a computed tomography scan of the chest at the time of admission that showed multifocal bilateral airspace disease without any pleural effusion. The tracheobronchial tree was patent. There was no evidence of any mediastinal lymphadenopathy or clotting. On today's evaluation of 06/29/2018 martin paredes I'm seeing this patient for a follow- up. Clinically is improved. He was taken off the nasal cannula and he maintained his oxygen at 95%. However his chest x-ray still stable and there is breath and pulmonary infiltrates which is unchanged compared to yesterday. Note that based on history with history of MRSA infection, I noted that the antibiotic coverage and give the patient a combination of Levaquin and vancomycin. Legionella urine antigen is still pending for now. Meanwhile, the patient is also started on systemic steroids. He is getting tired and short of breath with limited amount of activity out of the bed. Cultures are showing gram-negative and gram-positive and the final sensitivities and identification is not done yet. Objective - Vital Signs Vital signs: Vital Signs Temp 98.6 F 06/29/18 07:00 Pulse 96 06/29/18 07:35 Resp 18 06/29/18 07:00 BP 113/85 06/29/18 07:00 Pulse Ox 95 06/29/18 07:00 Intake & Output 06/28/18 06/29/18 06/29/18 18:59 06:59 18:59 Weight 99.79 kg Other: # Voids 2 2 - Exam Gen. appearance the patient is a mild degree of respiratory distress on RA Head exam was generally normal. There was no scleral icterus or corneal arcus. Mucous membranes were moist. Neck was supple and without jugular venous distension, thyromegaly, or carotid bruits. Carotids were easily palpable bilaterally. There was no adenopathy. Lungs sounds are diminished bilaterally along with some crackles heard throughout the lung herrera and scattered expiratory wheezes and rhonchi. Cardiac exam revealed the PMI to be normally situated and sized. The rhythm was regular and no extrasystoles were noted during several minutes of auscultation. The first and second heart sounds were normal and physiologic splitting of the second heart sound was noted. There were no murmurs, rubs, clicks, or gallops. Abdominal exam revealed normal bowel sounds. The abdomen was soft, non-tender, and without masses, organomegaly, or appreciable enlargement of the abdominal aorta. Examination of the extremities revealed easily palpable radial, femoral and pedal pulses. There was no cyanosis, clubbing or edema. Examination of the skin revealed no evidence of significant rashes, suspicious appearing nevi or other concerning lesions. Neurologically the patient is awake and alert and there is no focal neurological deficit. - Labs CBC & Chem 7: 06/29/18 08:25 06/28/18 08:02 Labs: Abnormal Lab Results - Last 24 Hours (Table) 06/28/18 06/28/18 06/28/18 Range/Units 12:28 16:44 20:38 WBC (3.8-10.6) k/uL RBC (4.30-5.90) m/uL Hgb (13.0-17.5) gm/dL POC Glucose (mg/dL) 127 H 154 H 156 H (75-99) mg/dL 06/29/18 06/29/18 Range/Units 07:02 08:25 WBC 19.3 H (3.8-10.6) k/uL RBC 4.03 L (4.30-5.90) m/uL Hgb 12.4 L (13.0-17.5) gm/dL POC Glucose (mg/dL) 149 H (75-99) mg/dL Microbiology - Last 24 Hours (Table) 06/27/18 16:05 Blood Culture - Preliminary Blood No Growth after 24 hours 06/28/18 03:18 Gram Stain - Preliminary Sputum Sputum Culture - Preliminary Assessment and Plan Plan: 1 acute bilateral pneumonia with patchy airspace disease right more than left. This is likely a bacterial pneumonia. Consider staphylococcal pneumonia including MRSA knowing that the patient has been in a rehab facility and the patient has been exposed and infected with MRSA in the past. The patient clinically is feeling better. Clinically, the patient improved compared to yesterday while being on a combination of Levaquin and vancomycin. Final cultures and sensitivities are still pending from the sputum. Legionella urine antigen is also pending. 2 acute hypoxic respiratory failure secondary to above improving 3 alcoholism 4 alcohol rehabilitation at [place] 5 chronic back pain 6 deep brain stimulator for chronic back pain management 7 smoker Plan Continue Levaquin, vancomycin and IV Solu-Medrol. Repeat chest x-ray in the morning. Chest x-ray from today showing stable bilateral pulmonary infiltrates. Clinically however, the patient is improved. We'll continue to follow.
[2018-06-29] MEDS: THIAMINE 100 MG TAB PO SCH ×2 (11:44→17:52)
--- NOTE | 2018-06-29 12:28 | P.PN ---
Subjective Progress Note Date: 06/29/18 Patient was seen and examined. Patient reports slight improvement in breathing but continues to complain of SOB especially with exertion. Previous compliant of head congestion and frontal FIELDS resolving with Mucinex and Claritin. Patient requesting STI screen and blood lead level? Objective - Vital Signs Vital signs: Vital Signs Temp 98.6 F 06/29/18 07:00 Pulse 96 06/29/18 11:29 Resp 18 06/29/18 07:00 BP 113/85 06/29/18 07:00 Pulse Ox 95 06/29/18 07:00 Intake & Output 06/28/18 06/29/18 06/29/18 18:59 06:59 18:59 Weight 99.79 kg Other: # Voids 2 2 - Exam Constitutional: Patient is in no acute distress. Sitting up in a chair. HEENT: NC/AT. EOMI. Tender frontal and maxillary sinus bilaterally. Neck: Normal ROM of the neck. No cervical LAD. Resp: Decreased breath sounds bilaterally. Ronchi much improved from yesterday. Saturating 95% on RA. CVS: Normal S1 S2. RRR. No murmurs, rubs or gallops. GI: Soft, non-tender to palpation, no masses palpable. : Deferred. MSK: No LE edema. Neuro: AO x 3 - Labs CBC & Chem 7: 06/29/18 08:25 06/28/18 08:02 Labs: Abnormal Lab Results - Last 24 Hours (Table) 06/28/18 06/28/18 06/28/18 Range/Units 12:28 16:44 20:38 WBC (3.8-10.6) k/uL RBC (4.30-5.90) m/uL Hgb (13.0-17.5) gm/dL POC Glucose (mg/dL) 127 H 154 H 156 H (75-99) mg/dL 06/29/18 06/29/18 Range/Units 07:02 08:25 WBC 19.3 H (3.8-10.6) k/uL RBC 4.03 L (4.30-5.90) m/uL Hgb 12.4 L (13.0-17.5) gm/dL POC Glucose (mg/dL) 149 H (75-99) mg/dL Microbiology - Last 24 Hours (Table) 06/27/18 16:05 Blood Culture - Preliminary Blood No Growth after 24 hours 06/28/18 03:18 Gram Stain - Preliminary Sputum Sputum Culture - Preliminary Assessment and Plan Assessment: Assessment 53 year old M with PMH of EtOH abuse presents to the ED for cough and SOB. CXR confirms multifocal PNA. Patient admitted for IV antibiotics and for increased O2 requirements. Plan 1. Community acquired pneumonia - CXR confirms multifocal bilateral airspace disease. CTA excluded PE (D-Dimer elevated to 1.40) but confirms findings similar to CXR but unable to exclude pulmonary edema. - Sputum Cx shows WBC, gram positive and gram negative Bacilli. BCx 24H prelim no growth. - Pulm recs appreciated - Continue Abx/bronchodilators/steroids, CXR within 24H , Legionella UAg. - Plan: Continue O2 per NC to maintain O2 sat > 92%. Continue DuoNeb Q4H scheduled/PRN. Continue Levaquin 750mg PO daily and Vancomycin 1500 mg IV Q8H ( day 1). Continue Solu-Medrol 60 mg IV Q6H. FU CXR in the AM, Legionella UAg, SputumCx, MRSA screen. 2. EtOH abuse: Last drink 30 days ago. Low risk for withdrawal. CIWA protocol with Ativan IV PRN for withdrawal. Continue Cymbalta 60 mg daily, Gabapentin 1200 mg PO TID. Continue MVI 1 tab PO daily, Thiamine 100 mg PO daily and Folic acid 1mg PO daily. FU SW 3. Sinusitis: On physical exam. Continue Mucinex 600 mg PO BID, Claritin D PO BID. 4. Leukocytosis: WBC uptrending from 10.9 to 19.3 with shift. Likely related to IV steroid use. Will continue to monitor. 5. Transaminitis: ALT 88 ALK-P 215. AST and T. Bili within normal limits. Likely related to heavy EtOH consumption. Will continue to monitor. 6. DVT/GI Prophylaxis: Pepcid 20 mg PO BID and Heparin 5000 units TID. (1) Pneumonia Current Visit: Yes Status: Acute Code(s): J18.9 - PNEUMONIA, UNSPECIFIED ORGANISM SNOMED Code(s): 425257816 (2) H/O ETOH abuse Current Visit: Yes Status: Acute Code(s): Z87.898 - PERSONAL HISTORY OF OTHER SPECIFIED CONDITIONS SNOMED Code(s): 777308329
[2018-06-29 12:32] LABS: Glucose,Whole Blood 141 mg/dL (75-99)
--- NOTE | 2018-06-29 14:07 | CDI ---
Last Revision, October 2017 Documentation Clarification Form Date: 06/28/18 From: Nuvia Hernadez RN Admit Date: 06/27/2018 6:37:00 PM Patient Name: Julio C Valdez Visit Number: [id number] ATTENTION: The Clinical Documentation Specialists (CDI) and [facility] Coding Staff appreciate your assistance in clarifying documentation. Please respond to the clarification below the line at the bottom and electronically sign. The CDI & [facility] Coding staff will review the response and follow-up if needed. Please note: Queries are made part of the Legal Health Record. If you have any questions, please contact the author of this message via ITS. Dr. Jigna Eid, Pneumonia was documented in your notes on: 06/27 - 06/29 History/Risk Factors: ETOH, back pain, MRSA, anxiety , depression, smoker, alcohol abuse, pneumonia Clinical Indicators: WBC on admission: 10.9 X-ray: 06/27 Interval development of multifocal bilateral airspace disease. Infectious etiology such as multifocal pneumonia should be considered. 06/29: Differential diagnosis would include pulmonary edema or multifocal pneumonia. Lung/Breathing assessment: wheezes, rhonchi, chest wall tenderness, decreased breath sounds Sputum Culture reports: gram positive and gram negative bacilli Treatment: Antibiotics: Azithromycin PO, ceftriaxone IVPB, Levofloxacin IVPB, IV Vanco O2: 2L, Ventimask Breathing Tx: Ventolin, Duoneb, Atrovent In order to capture the severity of condition, please clarify the specificity of the condition : Gram Negative Pneumonia Pneumonia caused by other bacteria (please specify) Simple Pneumonia Other, please specify Unable to determine Please continue to document in your progress notes, under the line below and/or in the discharge summary in order to capture severity of illness and risk of mortality. Include clinical findings that support your diagnosis. Unable to be determined. On futher workup, we believe the multifocal BL airspace disease to be related to pulmonary edema and not due to pneumonia MTDD
[2018-06-29] MEDS: LORazepam 2 MG/ML INJ IV PRN (15:10)
[2018-06-29 17:07] LABS: Glucose,Whole Blood 131 mg/dL (75-99)
[2018-06-29 20:48] LABS: Glucose,Whole Blood 129 mg/dL (75-99)
[2018-06-30] MEDS: methylPREDNISolone SOD SUCCI 125 MG/2 ML VIAL IV SCH ×4 (00:46→18:27)
[2018-06-30] MEDS: HEPARIN SODIUM,PORCINE 5,000 UNIT/ML 1 ML VIAL SQ SCH ×3 (00:46→15:06)
[2018-06-30] MEDS: VANCOMYCIN 1,500 MG in SODIUM CHLORIDE 0.9% 250 ML IVPB SCH ×2 (04:57→11:26)
[2018-06-30] MEDS: IPRATROPIUM-ALBUTEROL 3 ML NEB INHALATION SCH ×4 (06:54→20:35)
[2018-06-30 07:13] LABS: Glucose,Whole Blood 119 mg/dL (75-99)
--- NOTE | 2018-06-30 07:59 | XR ---
EXAMINATION TYPE: XR chest 2V DATE OF EXAM: 06/30/2018 COMPARISON: 06/29/2018 TECHNIQUE: PA and lateral views submitted. HISTORY: Shortness of breath FINDINGS: Bilateral airspace disease noted. Findings are stable. Underlying interstitial process noted. Hyperin flation suggests COPD. Postsurgical change involving the cervical spine noted and there is a metallic device with leads extending cephalically which are stable. Arthropathy of the shoulders. IMPRESSION: 1. Bilateral interstitial process with multifocal areas of consolidation. Differential diagnosis woul d include pulmonary edema or multifocal pneumonia. Atypical or interstitial pneumonitis in the differ ential diagnosis. Findings appear stable.
[2018-06-30] MEDS: NAPROXEN 250 MG TAB PO SCH ×2 (08:18→20:18)
[2018-06-30] MEDS: NICOTINE 14MG/24HR PATCH TRANSDERM SCH ×2 (08:18→08:21)
[2018-06-30] MEDS: LEVOFLOXACIN 750 MG TAB PO SCH (08:18)
[2018-06-30] MEDS: LORATADINE-PSEUDOEPH 5-120 MG 1 EACH TAB.ER.12H PO SCH ×2 (08:19→20:20)
[2018-06-30] MEDS: MULTIVITAMINS, THERA 1 EACH TAB PO SCH (08:19)
[2018-06-30] MEDS: guaiFENesin 600 MG TABLET.ER PO SCH ×3 (08:19→20:19)
[2018-06-30] MEDS: DULoxetine HCL 60 MG CAPSULE.DR PO SCH (08:19)
[2018-06-30] MEDS: FAMOTIDINE 20 MG TAB PO SCH ×2 (08:19→20:19)
[2018-06-30] MEDS: THIAMINE 100 MG TAB PO SCH ×2 (08:20→15:06)
[2018-06-30] MEDS: FOLIC ACID 1 MG TAB PO SCH (08:20)
[2018-06-30] MEDS: GABAPENTIN 400 MG CAP PO SCH ×3 (08:20→20:18)
--- NOTE | 2018-06-30 10:27 | P.PN ---
Subjective Progress Note Date: 06/30/18 Principal diagnosis: Pneumonia Patient was seen and examined. Patient reports improvement in breathing. Patient still feels congested. Continues to cough, minimal sputum production. He denies any h/o heart failure or CAD. > 10 block endurance prior to being sick. No orthopnea or LE edema. Objective - Vital Signs Vital signs: Vital Signs Temp 97.3 F L 06/29/18 22:44 Pulse 104 H 06/30/18 07:04 Resp 18 06/29/18 22:44 BP 174/81 06/29/18 22:44 Pulse Ox 95 06/30/18 06:54 Intake & Output 06/29/18 06/30/18 06/30/18 18:59 06:59 18:59 Other: # Voids 3 1 - Exam General: non toxic, no distress, appears at stated age Derm: warm, dry Head: atraumatic, normocephalic, symmetric Eyes: EOMI, no lid lag, anicteric sclera Mouth: no lip lesion, mucus membranes moist Cardiovascular: S1S2 reg, no murmur Lungs: Decreased breath sounds bilaterally, scattered rhonchi bilaterally, no accessory muscle use Abdominal: soft, nontender to palpation, no guarding, no appreciable organomegaly Ext: no gross muscle atrophy, no edema, no contractures Neuro: CN II-XI grossly intact, no focal neuro deficits Psych: Alert, oriented, appropriate affect - Labs CBC & Chem 7: 06/29/18 08:25 06/28/18 08:02 Labs: Abnormal Lab Results - Last 24 Hours (Table) 06/29/18 06/29/18 06/29/18 Range/Units 12:16 16:54 20:46 POC Glucose (mg/dL) 141 H 131 H 129 H (75-99) mg/dL 06/30/18 Range/Units 07:10 POC Glucose (mg/dL) 119 H (75-99) mg/dL Microbiology - Last 24 Hours (Table) 06/28/18 03:18 Gram Stain - Final Sputum Sputum Culture - Final 06/29/18 04:36 Gram Stain - Preliminary Sputum 06/27/18 16:05 Blood Culture - Preliminary Blood No Growth after 48 hours Assessment and Plan Assessment: Assessment 53 year old M with PMH of EtOH abuse presents to the ED for cough and SOB. CXR confirms multifocal PNA. Patient admitted for IV antibiotics and for increased O2 requirements. Plan Community acquired pneumonia - CXR confirms multifocal bilateral airspace disease. CTA excluded PE (D-Dimer elevated to 1.40) but confirms findings similar to CXR but unable to exclude pulmonary edema. - Sputum Cx shows normal respiratory bridger. BCx 48H prelim no growth. - Pulm recs appreciated - Continue Abx/bronchodilators/steroids, CXR within 24H , Legionella UAg. - BNP 1810 with CTA showing signs of pulmonary HTN. - Plan: Continue O2 per NC to maintain O2 sat > 92%. Continue DuoNeb Q4H scheduled/PRN. Continue Levaquin 750mg PO daily and Vancomycin 1500 mg IV Q8H ( day 2). Continue Solu-Medrol 60 mg IV Q6H. FU CXR in the AM, Legionella UAg, MRSA screen. FU Echo to r/o decompensated HF as a cause. EtOH abuse: Last drink 30 days ago. Low risk for withdrawal. CIWA protocol with Ativan IV PRN for withdrawal. Continue Cymbalta 60 mg daily, Gabapentin 1200 mg PO TID. Continue MVI 1 tab PO daily, Thiamine 100 mg PO daily and Folic acid 1mg PO daily. Sinusitis: On physical exam. Continue Mucinex 600 mg PO BID, Claritin D PO BID. Leukocytosis: WBC uptrending from 10.9 to 19.3 with shift. Likely related to IV steroid use. Will continue to monitor. FU CBC Transaminitis: ALT 88 ALK-P 215. AST and T. Bili within normal limits. Likely related to heavy EtOH consumption. Will continue to monitor. FU CMP DVT/GI Prophylaxis: Pepcid 20 mg PO BID and Heparin 5000 units TID. (1) Pneumonia Current Visit: Yes Status: Acute Code(s): J18.9 - PNEUMONIA, UNSPECIFIED ORGANISM SNOMED Code(s): 240415078 (2) H/O ETOH abuse Current Visit: Yes Status: Acute Code(s): Z87.898 - PERSONAL HISTORY OF OTHER SPECIFIED CONDITIONS SNOMED Code(s): 410261754
--- NOTE | 2018-06-30 10:59 | ECHOF ---
Referral Reason:Shortness of breath MEASUREMENTS -------- HEIGHT: 182.9 cm WEIGHT: 99.8 kg BP: RVIDd: 3.0 cm (< 3.3) IVSd: 0.9 cm (0.6 - 1.1) LVIDd: 4.4 cm (3.9 - 5.3) LVPWd: 1.1 cm (0.6 - 1.1) IVSs: 1.1 cm LVIDs: 4.1 cm LVPWs: 1.4 cm Ao Diam: 3.0 cm (2.0 - 3.7) AV Cusp: 2.1 cm (1.5 - 2.6) LA Diam: 3.7 cm (2.7 - 3.8) MV EXCURSION: 19.436 mm (> 18.000) MV EF SLOPE: 114 mm/s (70 - 150) EPSS: 1.7 cm MV E Iggy: 0.77 m/s MV DecT: 259 ms MV A Iggy: 0.47 m/s MV E/A Ratio: 1.63 RAP: 5.00 mmHg RVSP: 11.59 mmHg FINDINGS -------- Undetermined rhythm. This was a technically adequate study. The left ventricular size is normal. Left ventricular wall thickness is normal. There is severe g lobal hypokinesis of LV . Overall left ventricular systolic function is severely impaired with, an EF between 20 - 25 %. The right ventricle is normal in size. The left atrium is normal in size. The right atrium is normal in size. The aortic valve is trileaflet, and appears structurally normal. No aortic stenosis or regurgitation. There is trace mitral regurgitation. Trace tricuspid regurgitation present. The right ventricular systolic pressure, as measured by Dopp ler, is 11.59mmHg. Pulmonic valve appears structurally normal. The aortic root size is normal. The inferior vena cava is mildly dilated. The pericardium is normal. Moderate Pleural Effusion. CONCLUSIONS -------- 1. Undetermined rhythm. 2. This was a technically adequate study. 3. The left ventricular size is normal. 4. Left ventricular wall thickness is normal. 5. There is severe global hypokinesis of LV . 6. Overall left ventricular systolic function is severely impaired with, an EF between 20 - 25 %. 7. The right ventricle is normal in size. 8. The left atrium is normal in size. 9. The right atrium is normal in size. 10. The aortic valve is trileaflet, and appears structurally normal. No aortic stenosis or regurgitat ion. 11. There is trace mitral regurgitation. 12. Trace tricuspid regurgitation present. 13. The right ventricular systolic pressure, as measured by Doppler, is 11.59mmHg. 14. Pulmonic valve appears structurally normal. 15. The aortic root size is normal. 16. The inferior vena cava is mildly dilated. 17. The pericardium is normal. 18. Moderate Pleural Effusion. LEAD PONY RIDER: Glendy Luther RDCS
[2018-06-30] MEDS ORDERED: VANCOMYCIN TROUGH DUE 1 EACH MISC MISCELLANE ONE (11:00)
[2018-06-30 11:24] LABS: HCT 40.4 % (39.0-53.0); HGB 12.8 gm/dL (13.0-17.5); MCH 30.4 pg (25.0-35.0); MCHC 31.6 g/dL (31.0-37.0); MCV 96.3 fL (80.0-100.0); Mean Platelet Volume 8.4; Platelet Count 291 k/uL (150-450); RBC 4.19 m/uL (4.30-5.90); RDW 13.7 % (11.5-15.5); WBC 16.8 k/uL (3.8-10.6)
[2018-06-30 11:48] LABS: ALT 161 U/L (21-72); AST 68 U/L (17-59); Albumin 3.3 g/dL (3.5-5.0); Alkaline Phosphatase 226 U/L (38-126); Anion Gap 9 mmol/L; Blood Urea Nitrogen 28 mg/dL (9-20); Carbon Dioxide 27 mmol/L (22-30); Chloride 104 mmol/L (98-107); Glucose 144 mg/dL (74-99); Potassium 4.5 mmol/L (3.5-5.1); Sodium 140 mmol/L (137-145); Total Bilirubin 0.3 mg/dL (0.2-1.3); Total Protein 5.6 g/dL (6.3-8.2)
[2018-06-30 12:20] LABS: Glucose,Whole Blood 145 mg/dL (75-99)
--- NOTE | 2018-06-30 12:48 | P.PN ---
Subjective Progress Note Date: 06/30/18 Principal diagnosis: Acute hypoxic respiratory failure secondary to acute exacerbation of systolic congestive heart failure and suspected pneumonia. 53-year-old male patient, alcoholic, who was undergoing alcohol rehabilitation at [place], and during his stay at the rehab center the patient became progressively more short of breath and his chest felt more congested and tight and he was having progressive increasing dyspnea cough and chest congestion and wheezing. He was also having some cold chills. He presented to the hospital and he was diagnosed having bilateral pneumonia and he was started on a combination of Rocephin and Zithromax. A pulmonary consultation was requested. I noted that overnight the patient was placed on a Ventimask and currently is on 5 L of oxygen by nasal cannula. He is a congested cough. He was able to give me a small sample of sputum. He is hemodynamically stable. No pleurisy. No hemoptysis. No recurrent pneumonias PMI aspiration. He has had previous MRSA infection, a complication of a previous deep vein stimulator infection that was ultimately taken out. He has still and other stimulator on the right side of his chest. He has issues with chronic pain. 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 This was not a malignant tumor according to him. The patient lives in the [facility] and the patient was undergoing rehabilitation at [place]. No recurrent pneumonias. Note that he had a computed tomography scan of the chest at the time of admission that showed multifocal bilateral airspace disease without any pleural effusion. The tracheobronchial tree was patent. There was no evidence of any mediastinal lymphadenopathy or clotting. On today's evaluation of 06/29/2018 martin paredes I'm seeing this patient for a follow- up. Clinically is improved. He was taken off the nasal cannula and he maintained his oxygen at 95%. However his chest x-ray still stable and there is breath and pulmonary infiltrates which is unchanged compared to yesterday. Note that based on history with history of MRSA infection, I noted that the antibiotic coverage and give the patient a combination of Levaquin and vancomycin. Legionella urine antigen is still pending for now. Meanwhile, the patient is also started on systemic steroids. He is getting tired and short of breath with limited amount of activity out of the bed. Cultures are showing gram-negative and gram-positive and the final sensitivities and identification is not done yet. Patient is seen again today 06/30/2018 in follow-up on the regular medical floor. He is awake and alert in no acute distress. He's been up ambulating in the hallway. He is maintaining O2 saturations in the low 90s on room air. He continues with a loose nonproductive cough. Today's chest x-ray still shows pulmonary infiltrates/edema. Blood and sputum cultures reveal no growth. His been afebrile. He count 16.8. Hemoglobin 12.8. Creatinine 0.80. AST 161 ALT 226. Echocardiogram revealed global hypokinesia and severely impaired left ventricular systolic function with ejection fraction 20-25%. Objective - Vital Signs Vital signs: Vital Signs Temp 97.5 F L 06/30/18 07:00 Pulse 100 06/30/18 11:09 Resp 16 06/30/18 07:00 BP 130/89 06/30/18 07:00 Pulse Ox 92 L 06/30/18 07:00 Intake & Output 06/29/18 06/30/18 06/30/18 18:59 06:59 18:59 Other: # Voids 3 1 - Exam Gen. appearance the patient is a mild degree of respiratory distress on RA Head exam was generally normal. There was no scleral icterus or corneal arcus. Mucous membranes were moist. Neck was supple and without jugular venous distension, thyromegaly, or carotid bruits. Carotids were easily palpable bilaterally. There was no adenopathy. Lungs sounds are diminished bilaterally along with some crackles heard throughout the lung herrera and scattered expiratory wheezes and rhonchi. Cardiac exam revealed the PMI to be normally situated and sized. The rhythm was regular and no extrasystoles were noted during several minutes of auscultation. The first and second heart sounds were normal and physiologic splitting of the second heart sound was noted. There is a systolic murmur, no rubs, clicks, or gallops. Abdominal exam revealed normal bowel sounds. The abdomen was soft, non-tender, and without masses, organomegaly, or appreciable enlargement of the abdominal aorta. Examination of the extremities revealed easily palpable radial, femoral and pedal pulses. There was no cyanosis, clubbing or edema. Examination of the skin revealed no evidence of significant rashes, suspicious appearing nevi or other concerning lesions. Neurologically the patient is awake and alert and there is no focal neurological deficit. - Labs CBC & Chem 7: 06/30/18 11:14 06/30/18 11:14 Labs: Abnormal Lab Results - Last 24 Hours (Table) 06/29/18 06/29/18 06/30/18 Range/Units 16:54 20:46 07:10 WBC (3.8-10.6) k/uL RBC (4.30-5.90) m/uL Hgb (13.0-17.5) gm/dL BUN (9-20) mg/dL Glucose (74-99) mg/dL POC Glucose (mg/dL) 131 H 129 H 119 H (75-99) mg/dL AST (17-59) U/L ALT (21-72) U/L Alkaline Phosphatase (38-126) U/L Total Protein (6.3-8.2) g/dL Albumin (3.5-5.0) g/dL 06/30/18 06/30/18 06/30/18 Range/Units 11:14 11:14 12:16 WBC 16.8 H (3.8-10.6) k/uL RBC 4.19 L (4.30-5.90) m/uL Hgb 12.8 L (13.0-17.5) gm/dL BUN 28 H (9-20) mg/dL Glucose 144 H (74-99) mg/dL POC Glucose (mg/dL) 145 H (75-99) mg/dL AST 68 H (17-59) U/L ALT 161 H (21-72) U/L Alkaline Phosphatase 226 H (38-126) U/L Total Protein 5.6 L (6.3-8.2) g/dL Albumin 3.3 L (3.5-5.0) g/dL Microbiology - Last 24 Hours (Table) 06/28/18 03:18 Gram Stain - Final Sputum Sputum Culture - Final 06/29/18 04:36 Gram Stain - Preliminary Sputum 06/27/18 16:05 Blood Culture - Preliminary Blood No Growth after 48 hours Assessment and Plan Assessment: 1 acute bilateral pneumonia with patchy airspace disease right more than left. This is likely a bacterial pneumonia. Consider staphylococcal pneumonia including MRSA knowing that the patient has been in a rehab facility and the patient has been exposed and infected with MRSA in the past. The patient clinically is feeling better. Clinically, the patient improved compared to yesterday while being on a combination of Levaquin and vancomycin. Final cultures and sensitivities reveal no growth. Legionella urine antigen is also pending. 06/30/2018 echocardiogram reveals global hypokinesia and severely impaired left ventricular systolic function with ejection fraction 20-25%. 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 Today's chest x-ray does show evidence of pulmonary edema. We' ll discontinue the vancomycin, continue Levaquin. Add Lasix 40 mg IV push every 12 hours. Add MEGA inhibitor. Consider beta surinder. 2 acute hypoxic respiratory failure secondary to above 3 alcoholism 4 alcohol rehabilitation at [place] 5 chronic back pain 6 deep brain stimulator for chronic back pain management 7 smoker Plan: The patient was seen and evaluated by Dr. Herrera. Chest x-ray, echocardiogram and labs were all reviewed. Sputum and blood cultures reveal no growth. We'll discontinue the vancomycin. Continue Levaquin. Add diuretics and mega inhibitors. Consider beta blockers. Consult cardiology. Repeat chest x-ray in the a.m. Increase his activity as tolerated. We'll continue to follow and make further recommendations based on his clinical status. I, the cosigning physician, performed a history & physical examination of the patient. Lungs sounds with crackles in the bilateral posterior bases, end expiratory wheeze Maintaining good O2 saturations in the 90s on room air. I discussed the assessment and plan of care with my nurse practitioner, Afshan Johns. I attest to the above note as dictated by her.
[2018-06-30] MEDS: LISINOPRIL 10 MG TAB PO SCH (13:03)
[2018-06-30] MEDS: FUROSEMIDE 10 MG/ML 4 ML VIAL IV SCH ×2 (13:03→20:19)
[2018-06-30] MEDS: LORazepam 2 MG/ML INJ IV PRN (14:23)
--- NOTE | 2018-06-30 14:31 | P.CRDCN ---
History of Present Illness History of present illness: Mr. Bear is a pleasant 53-year-old male past medical history significant for significant alcohol abuse, chronic back pain, neuropathy, tumor of cervical spine with resection and chronic nicotine dependence. We have been asked to see him in consultation for new onset systolic heart failure. He presented to the hospital with symptoms of cough, congestion and shortness of breath. Initial chest x-ray on 06/27 revealed interval development of multifocal bilateral airspace disease infectious etiology such as multifocal pneumonia considered, alternatively pulmonary edema may have a similar appearance. Chest x-ray's have been repeated daily and indicate a similar finding after being on IV antibiotics since admission. CTA of the chest reveals multifocal bilateral airspace disease, pneumonia favored over pulmonary edema. Minimal enlargement of the main pulmonary artery noted. No evidence of pulmonary embolism. Echocardiogram was obtained and revealed severely impaired left ventricular systolic function with ejection fraction 20-25%, severe global hypokinesia and no evidence of pulmonary hypertension. The patient denies any history of coronary artery disease, hypertension or dyslipidemia in the past. He states he has never undergone cardiac evaluation in the past. He continues to complain of ongoing shortness of breath with lower extremity edema. He denies symptoms of chest pain, dizziness, palpitations, PND or orthopnea. He has a history of heavy alcoholism and prior to admission was undergoing rehab at [place]. EKG reveals sinus mechanism with no acute ST or T wave abnormalities noted. Laboratory data reviewed, WBC 16.8, hemoglobin 12.8, platelets 291, sodium 140, potassium 4.5, magnesium 1.9, creatinine 0.8, AST 68 and ALT 161. ProBNP obtained on the 1809. Home medications include Naprosyn, Neurontin and Cymbalta. Review of Systems At the time of my exam: CONSTITUTIONAL: Denies fever. Denies chills. Complains of generalized fatigue. EYES: Denies blurred vision. Denies vision changes. Denies eye pain. EARS, NOSE, MOUTH & THROAT: Denies headache. Denies sore throat. Denies ear pain. CARDIOVASCULAR: Denies chest pain. Denies shortness of breath. Denies orthopnea. Denies PND. Denies palpitations. RESPIRATORY: Complains of cough. GASTROINTESTINAL: Denies abdominal pain. Denies diarrhea. Denies constipation. Denies nausea. Denies vomiting. MUSCULOSKELETAL: Denies myalgias. INTEGUMENTARY: Denies pruitis. Denies rash. NEUROLOGIC: Denies numbness. Denies tingling. Denies weakness. PSYCHIATRIC: Denies anxiety. Denies depression. ENDOCRINE: Denies fatigue. Denies weight change. Denies polydipsia. Denies polyurina. GENITOURINARY: Denies burning, hematuria or urgency with micturation. HEMATOLOGIC: Denies history of anemia. Denies bleeding. Past Medical History Past Medical History: Neurologic Disorder, Pneumonia Additional Past Medical History / Comment(s): Alcoholism and the patient claims that he hasn't drank alcohol for a month and he was undergoing rehabilitation at [place]. 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 Chronic anxiety. Chronic depression. Chronic smoker. 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 Past Psychological History: Anxiety, Bipolar, Depression, PTSD Smoking Status: Current every day smoker Past Alcohol Use History: Abuse, Daily Past Drug Use History: None Reported - Past Family History Family Additional Family Medical History / Comment(s): Denies history of premature CAD Medications and Allergies Home Medications Medication Instructions Recorded Confirmed Type DULoxetine HCL [Cymbalta] 60 mg PO DAILY 06/22/18 06/27/18 History Gabapentin [Neurontin] 1,200 mg PO TID 06/22/18 06/27/18 History Naproxen [Naprosyn] 500 mg PO BID #20 tablet 06/22/18 06/27/18 Rx Allergies Allergy/AdvReac Type Severity Reaction Status Date / Time hydromorphone [From Dilaudid] AdvReac psychosis Verified 06/27/18 16:14 Physical Exam Vitals: Vital Signs Temp Pulse Pulse Resp BP BP Pulse Ox 06/30/18 11:09 100 06/30/18 10:59 98 06/30/18 07:04 104 H 06/30/18 07:00 97.5 F L 56 L 16 130/89 92 L 06/30/18 06:54 100 95 06/29/18 22:44 97.3 F L 101 H 18 174/81 93 L 06/29/18 19:20 97 06/29/18 19:11 97 06/29/18 15:28 96 06/29/18 15:18 96 06/29/18 15:00 98.3 F 97 18 153/94 99 Intake and Output 06/29/18 06/30/18 06/30/18 22:59 06:59 14:59 Other: # Voids 2 1 Blood pressure 130/89 heart rate 100 afebrile maintaining oxygen saturation on room air GENERAL: This is a 53-year-old male in no apparent distress at the time of my examination. HEENT: Head is atraumatic, normocephalic. Pupils are equal, round. Sclerae anicteric. Conjunctivae are clear. Mucous membranes of the mouth are moist. Neck is supple. There is no jugular venous distention. No carotid bruit is heard. LUNGS: Bibasilar rales with coarse rhonchi noted throughout. No wheezes. No chest wall tenderness is noted on palpation or with deep breathing. HEART: Irregular rate and rhythm with systolic ejection murmur at the base, no rubs or gallops. S1 and S2 heard. ABDOMEN: Soft, nontender. Bowel sounds are heard. No organomegaly noted. EXTREMITIES: Trace bilateral lower extremity edema and no calf tenderness noted. VASCULAR: Radial and dorsalis pedis pulses palpated, no evidence of clubbing. NEUROLOGIC: Patient is awake, alert and oriented x3. Results 06/30/18 11:14 06/30/18 11:14 Cardiac Enzymes 06/30/18 Range/Units 11:14 AST 68 H (17-59) U/L CBC 06/30/18 Range/Units 11:14 WBC 16.8 H (3.8-10.6) k/uL RBC 4.19 L (4.30-5.90) m/uL Hgb 12.8 L (13.0-17.5) gm/dL Hct 40.4 (39.0-53.0) % Plt Count 291 (150-450) k/uL Comprehensive Metabolic Panel 06/30/18 Range/Units 11:14 Sodium 140 (137-145) mmol/L Potassium 4.5 (3.5-5.1) mmol/L Chloride 104 (98-107) mmol/L Carbon Dioxide 27 (22-30) mmol/L BUN 28 H (9-20) mg/dL Creatinine 0.80 (0.66-1.25) mg/dL Glucose 144 H (74-99) mg/dL Calcium 9.0 (8.4-10.2) mg/dL AST 68 H (17-59) U/L ALT 161 H (21-72) U/L Alkaline Phosphatase 226 H (38-126) U/L Total Protein 5.6 L (6.3-8.2) g/dL Albumin 3.3 L (3.5-5.0) g/dL Current Medications Generic Name Dose Route Start Last Admin Trade Name Freq PRN Reason Stop Dose Admin Albuterol/Ipratropium 3 ml 06/27/18 20:00 06/30/18 10:59 Duoneb 0.5 Mg-3 Mg/3 Ml Soln INHALATION 3 ml RT-QID ERMELINDA Administration Albuterol/Ipratropium 3 ml 06/27/18 18:36 06/29/18 01:44 Duoneb 0.5 Mg-3 Mg/3 Ml Soln INHALATION 3 ml RT-Q4H PRN Administration shortness of breath Duloxetine HCl 60 mg 06/28/18 09:00 06/30/18 08:19 Cymbalta PO 60 mg DAILY ERMELINDA Administration Famotidine 20 mg 06/27/18 21:00 06/30/18 08:19 Pepcid PO 20 mg BID ERMELINDA Administration Folic Acid 1 mg 06/30/18 12:00 06/30/18 08:20 Folic Acid PO 1 mg DAILY@1200 ERMELINDA Administration Furosemide 40 mg 06/30/18 12:00 06/30/18 13:03 Lasix IV 40 mg Q12HR ERMELINDA Administration Gabapentin 1,200 mg 06/27/18 22:00 06/30/18 08:20 Neurontin PO 1,200 mg TID ERMELINDA Administration Guaifenesin 1,200 mg 06/30/18 21:00 06/30/18 11:33 Mucinex PO 600 mg Q12HR ERMELINDA Administration Heparin Sodium (Porcine) 5,000 unit 06/28/18 00:00 06/30/18 08:18 Heparin SQ 5,000 unit Q8HR ERMELINDA Administration Levofloxacin 750 mg 06/29/18 09:00 06/30/18 08:18 Levaquin PO 750 mg DAILY ERMELINDA Administration Lisinopril 10 mg 06/30/18 12:00 06/30/18 13:03 Zestril PO 10 mg DAILY ERMELINDA Administration Loratadine/Pseudoephedrine Sulfate 1 each 06/27/18 21:00 06/30/18 08:19 Claritin-D 12 Hr PO 1 each Q12HR ERMELINDA Administration Lorazepam 1 mg 06/27/18 18:38 06/29/18 15:10 Ativan IV 1 mg Q2HR PRN Administration CIWA 8 or 9 Lorazepam 1 mg 06/27/18 18:38 06/28/18 01:26 Ativan IV 1 mg Q1HR PRN Administration CIWA 10 to 15 Methylprednisolone Sodium Succinate 60 mg 06/28/18 12:00 06/30/18 11:29 Solu-Medrol IV 60 mg Q6HR ERMELINDA Administration Miscellaneous Information 1 each 06/27/18 18:36 Pneumonia Protocol Utilized PO ONCE PRN Per Protocol Multivitamins 1 each 06/28/18 12:00 06/30/18 08:19 Theragran PO 1 each DAILY@1200 ERMELINDA Administration Naloxone HCl 0.2 mg 06/27/18 20:21 Narcan IV Q2M PRN Opioid Reversal Naproxen 500 mg 06/27/18 21:00 06/30/18 08:18 Naprosyn PO 500 mg BID ERMELINDA Administration Nicotine 1 patch 06/28/18 09:00 06/30/18 08:21 Habitrol 14mg/24hr Patch TRANSDERM Not Given DAILY ERMELINDA Thiamine HCl 100 mg 06/28/18 12:00 06/30/18 08:20 Vitamin B-1 PO 100 mg BID@1200,1700 ERMELINDA Administration Intake and Output 06/29/18 06/30/18 06/30/18 22:59 06:59 14:59 Other: # Voids 2 1 06/30/18 11:14 06/30/18 11:14 Assessment and Plan Assessment: ASSESSMENT Acute systolic heart failure, new onset. Unknown etiology, suspect most likely a dilated cardiomyopathy secondary to chronic alcohol abuse. Acute bilateral pneumonia, bacterial. Pulmonology is following. Leukocytosis Acute hypoxic respiratory failure Alcoholism, currently undergoing treatment at [place] Chronic nicotine dependence PLAN We will need to optimize the patient's medication profile. Agree with IV Lasix and lisinopril initiation. Add small dose beta surinder and aspirin. Continue to monitor and follow vital signs closely to see if he tolerates new medications. Consider adding Aldactone tomorrow if he tolerates. Apply hogshead wrecker to assess for arrhythmia. Daily weights with intake and output to accurately diuresis. Lengthy discussion had with the patient regarding plan of care and questions have been answered extensively and appropriately. He will require further outpatient work up with cardiac catheterization to assess for coronary artery disease. Further recommendations to follow based upon clinical course Thank you kindly for this consultation. The above impression and plan of care have been discussed and directed by the signing physician. Allyson Tobar, nurse practitioner, acting as scribe for signing physician.
[2018-06-30 14:57] LABS: Cholesterol 182 mg/dL (<200); HDL Cholesterol 31 mg/dL (40-60); LDL Cholesterol,Calculated 124 mg/dL (0-99); Triglycerides 134 mg/dL (<150)
[2018-06-30] MEDS ORDERED: DILTIAZEM DRIP BOLUS FROM BAG 1 MG SOLN IV ONE (15:47)
[2018-06-30] MEDS: DILTIAZEM 50 MG in SODIUM CHLORIDE 0.9% 40 ML IV SCH (16:48)
[2018-06-30] MEDS ORDERED: HEPARIN SODIUM,PORCINE 5,000 UNIT/ML 1 ML VIAL IV PRN (17:22)
[2018-06-30] MEDS ORDERED: HEPARIN SOD,PORK IN 0.45% NACL 25,000 UNIT in 0.45% NACL 1 500ML.BAG IV SCH (17:30)
[2018-06-30 17:33] LABS: Glucose,Whole Blood 126 mg/dL (75-99)
[2018-06-30 18:18] LABS: Basophils % (A) 0 %; Eosinophils # (A) 0.1 k/uL (0-0.7); Eosinophils % (A) 1 %; HCT 42.8 % (39.0-53.0); HGB 13.6 gm/dL (13.0-17.5); Lymphocytes # (A) 0.8 k/uL (1.0-4.8); Lymphocytes % (A) 5 %; MCH 30.5 pg (25.0-35.0); MCHC 31.9 g/dL (31.0-37.0); MCV 95.7 fL (80.0-100.0); Mean Platelet Volume 8.6; Monocytes # (A) 0.7 k/uL (0-1.0); Monocytes % (A) 4 %; Neutrophils # (A) 15.4 k/uL (1.3-7.7); Neutrophils % (A) 90 %; Platelet Count 311 k/uL (150-450); RBC 4.47 m/uL (4.30-5.90); RDW 13.7 % (11.5-15.5); WBC 17.1 k/uL (3.8-10.6)
[2018-06-30] MEDS: METOPROLOL TARTRATE 25 MG TAB PO SCH (18:22)
[2018-06-30 18:40] LABS: INR 1.1 (<1.2); Partial Thromboplastin Time 21.9 sec (22.0-30.0)
[2018-06-30] MEDS ORDERED: METOPROLOL TARTRATE 12.5 MG TAB PO SCH (21:00)
[2018-06-30 21:09] LABS: Glucose,Whole Blood 162 mg/dL (75-99)
[2018-07-01] MEDS: LORazepam 2 MG/ML INJ IV PRN (01:32)
[2018-07-01] MEDS: DILTIAZEM 50 MG in SODIUM CHLORIDE 0.9% 40 ML IV SCH ×2 (01:33→11:20)
[2018-07-01 05:48] LABS: Glucose,Whole Blood 138 mg/dL (75-99)
[2018-07-01] MEDS: methylPREDNISolone SOD SUCCI 125 MG/2 ML VIAL IV SCH ×3 (06:21→11:10)
[2018-07-01] MEDS: IPRATROPIUM-ALBUTEROL 3 ML NEB INHALATION SCH ×4 (08:27→20:47)
[2018-07-01] MEDS ORDERED: ASPIRIN 81 MG PO SCH (09:00)
[2018-07-01] MEDS: FAMOTIDINE 20 MG TAB PO SCH (09:14)
[2018-07-01] MEDS: LISINOPRIL 10 MG TAB PO SCH (09:14)
[2018-07-01] MEDS: FUROSEMIDE 10 MG/ML 4 ML VIAL IV SCH (09:15)
[2018-07-01] MEDS: LEVOFLOXACIN 750 MG TAB PO SCH (09:15)
[2018-07-01] MEDS: guaiFENesin 600 MG TABLET.ER PO SCH (09:15)
[2018-07-01] MEDS: METOPROLOL TARTRATE 25 MG TAB PO SCH (09:15)
[2018-07-01] MEDS: DULoxetine HCL 60 MG CAPSULE.DR PO SCH (09:15)
[2018-07-01] MEDS: GABAPENTIN 400 MG CAP PO SCH ×2 (09:15→17:25)
[2018-07-01] MEDS: LORATADINE-PSEUDOEPH 5-120 MG 1 EACH TAB.ER.12H PO SCH (09:15)
[2018-07-01] MEDS: NAPROXEN 250 MG TAB PO SCH (09:16)
[2018-07-01 09:17] LABS: Anion Gap 10 mmol/L; Blood Urea Nitrogen 36 mg/dL (9-20); Calcium 8.8 mg/dL (8.4-10.2); Carbon Dioxide 27 mmol/L (22-30); Chloride 101 mmol/L (98-107); Glucose 114 mg/dL (74-99); Sodium 138 mmol/L (137-145)
[2018-07-01 09:26] LABS: HCT 43.1 % (39.0-53.0); HGB 13.4 gm/dL (13.0-17.5); MCH 30.1 pg (25.0-35.0); MCHC 31.2 g/dL (31.0-37.0); MCV 96.5 fL (80.0-100.0); Mean Platelet Volume 8.7; Platelet Count 273 k/uL (150-450); RBC 4.46 m/uL (4.30-5.90); RDW 13.6 % (11.5-15.5); WBC 19.2 k/uL (3.8-10.6)
--- NOTE | 2018-07-01 10:14 | XR ---
EXAMINATION TYPE: XR chest 2V DATE OF EXAM: 07/01/2018 COMPARISON: 06/30/2018 TECHNIQUE: PA and lateral views submitted. HISTORY: Shortness of breath FINDINGS: Bilateral airspace disease noted. Findings are stable. Underlying interstitial process noted. Hyperin flation suggests COPD. Postsurgical change involving the cervical spine noted and there is a metallic device with leads extending cephalically which are stable. Arthropathy of the shoulders. Chronic def ormity right clavicle. IMPRESSION: Bilateral interstitial process with multifocal areas of consolidation. Differential diagnosis would i nclude pulmonary edema or multifocal pneumonia. Atypical or interstitial pneumonitis in the different ial diagnosis. Findings appear stable.
[2018-07-01 10:27] LABS: Band Neutrophils % 6 %; Lymphocytes # (M) 1.73 k/uL (1.0-4.8); Metamyelocytes # (M) 0.77 k/uL (0); Metamyelocytes % 4 %; Monocytes # (M) 1.34 k/uL (0-1.0); Myelocytes # (M) 0.58 k/uL (0); Myelocytes % 3 %; Neutrophils % (M) 73 %; Nucleated Red Blood Cells 0 /100 WBC (0-0); Total Cells Counted 200
[2018-07-01 10:28] LABS: Toxic Granulation Present
[2018-07-01] MEDS ORDERED: METOPROLOL TARTRATE 25 MG TAB PO ONE (11:00)
[2018-07-01] MEDS: MULTIVITAMINS, THERA 1 EACH TAB PO SCH (11:10)
[2018-07-01] MEDS: NICOTINE 14MG/24HR PATCH TRANSDERM SCH (11:10)
[2018-07-01] MEDS: THIAMINE 100 MG TAB PO SCH ×2 (11:10→17:25)
[2018-07-01] MEDS: FOLIC ACID 1 MG TAB PO SCH (11:11)
[2018-07-01 11:25] LABS: Glucose,Whole Blood 101 mg/dL (75-99)
[2018-07-01 11:44] VITALS: RESP 18
--- NOTE | 2018-07-01 11:58 | P.PN ---
Subjective Progress Note Date: 07/01/18 Principal diagnosis: Acute hypoxic respiratory failure secondary to acute exacerbation of systolic congestive heart failure and suspected pneumonia 53-year-old male patient, alcoholic, who was undergoing alcohol rehabilitation at [facility], and during his stay at the rehab center the patient became progressively more short of breath and his chest felt more congested and tight and he was having progressive increasing dyspnea cough and chest congestion and wheezing. He was also having some cold chills. He presented to the hospital and he was diagnosed having bilateral pneumonia and he was started on a combination of Rocephin and Zithromax. A pulmonary consultation was requested. I noted that overnight the patient was placed on a Ventimask and currently is on 5 L of oxygen by nasal cannula. He is a congested cough. He was able to give me a small sample of sputum. He is hemodynamically stable. No pleurisy. No hemoptysis. No recurrent pneumonias PMI aspiration. He has had previous MRSA infection, a complication of a previous deep vein stimulator infection that was ultimately taken out. He has still and other stimulator on the right side of his chest. He has issues with chronic pain. 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 This was not a malignant tumor according to him. The patient lives in the [facility] and the patient was undergoing rehabilitation at [facility]. No recurrent pneumonias. Note that he had a computed tomography scan of the chest at the time of admission that showed multifocal bilateral airspace disease without any pleural effusion. The tracheobronchial tree was patent. There was no evidence of any mediastinal lymphadenopathy or clotting. On today's evaluation of 06/29/2018 martin paredes I'm seeing this patient for a follow- up. Clinically is improved. He was taken off the nasal cannula and he maintained his oxygen at 95%. However his chest x-ray still stable and there is breath and pulmonary infiltrates which is unchanged compared to yesterday. Note that based on history with history of MRSA infection, I noted that the antibiotic coverage and give the patient a combination of Levaquin and vancomycin. Legionella urine antigen is still pending for now. Meanwhile, the patient is also started on systemic steroids. He is getting tired and short of breath with limited amount of activity out of the bed. Cultures are showing gram-negative and gram-positive and the final sensitivities and identification is not done yet. Patient is seen again today 06/30/2018 in follow-up on the regular medical floor. He is awake and alert in no acute distress. He's been up ambulating in the hallway. He is maintaining O2 saturations in the low 90s on room air. He continues with a loose nonproductive cough. Today's chest x-ray still shows pulmonary infiltrates/edema. Blood and sputum cultures reveal no growth. His been afebrile. He count 16.8. Hemoglobin 12.8. Creatinine 0.80. AST 161 ALT 226. Echocardiogram revealed global hypokinesia and severely impaired left ventricular systolic function with ejection fraction 20-25%. On 07/01/2018 patient seen in follow-up on selective care unit. He was transferred to selective care yesterday in the afternoon, after he went into atrial fibrillation with rapid ventricular rate of 158 BPM. She was started on Cardizem drip, which is currently infusing at a rate of 7.5 mg per hour, and heparin drip for anticoagulation, currently infusing at 13 units per kilo per hour. Maintenance IV fluids this 0.9 normal saline at a rate of 10 ML per hour. This morning patient remains in atrial fibrillation, the rate of 94 BPM, he remains afebrile, hemodynamically stable, room air pulse ox is 91-95%, patient denies any worsening dyspnea, today's chest x-ray has been reviewed, and shows bilateral interstitial process with multifocal areas of consolidation , improvement noted in aeration of the left upper lobe. Clinically patient is improving, no fever, no chills, microbiology results were reviewed, blood, sputum cultures showed no growth. Today we discontinued vancomycin, and patient remains on antibiotic coverage in the form of Levaquin. Continues on systemic steroids, and IV Lasix. Cardiology is now following regarding acute CHF with systolic dysfunction, and new onset A. fib RVR. Objective - Vital Signs Vital signs: Vital Signs Temp 97 F L 07/01/18 08:00 Pulse 94 07/01/18 08:41 Resp 18 07/01/18 08:00 BP 128/74 07/01/18 08:00 Pulse Ox 91 L 07/01/18 08:31 Intake & Output 06/30/18 07/01/18 07/01/18 18:59 06:59 18:59 Intake Total 430 185.66 240 Balance 430 185.66 240 Weight 100.2 kg Intake: IV 250 Vancomycin 1,500 mg In 250 Sodium Chloride 0.9% 250 ml @ 125 mls/hr IVPB Q8H ERMELINDA Rx#:[id number] Intake, IV Titration 185.66 Amount Diltiazem 50 mg In Sodium 50 Chloride 0.9% 40 ml @ 7. 5 MG/HR 7.5 mls/hr IV . Q6H40M ERMELINDA Rx#:[id number] Heparin Sod,Pork in 0.45% 135.66 NaCl 25,000 unit In 0.45 % NaCl 1 500ml.bag @ 10 UNITS/KG/HR 19.95 mls/hr IV .Q24H ERMELINDA Rx#: [id number] Oral 180 240 Other: # Voids 4 - Exam Gen. appearance the patient is a mild degree of respiratory distress on RA Head exam was generally normal. There was no scleral icterus or corneal arcus. Mucous membranes were moist. Neck was supple and without jugular venous distension, thyromegaly, or carotid bruits. Carotids were easily palpable bilaterally. There was no adenopathy. Lungs sounds are diminished bilaterally along with some crackles heard throughout the lung herrera, no wheezing noted on today's exam. Cardiac exam revealed the PMI to be normally situated and sized. The rhythm was regular and no extrasystoles were noted during several minutes of auscultation. The first and second heart sounds were normal and physiologic splitting of the second heart sound was noted. There is a systolic murmur, no rubs, clicks, or gallops. Abdominal exam revealed normal bowel sounds. The abdomen was soft, non-tender, and without masses, organomegaly, or appreciable enlargement of the abdominal aorta. Examination of the extremities revealed easily palpable radial, femoral and pedal pulses. There was no cyanosis, clubbing or edema. Examination of the skin revealed no evidence of significant rashes, suspicious appearing nevi or other concerning lesions. Neurologically the patient is awake and alert and there is no focal neurological deficit. - Labs CBC & Chem 7: 07/01/18 09:00 07/01/18 09:00 Labs: Abnormal Lab Results - Last 24 Hours (Table) 06/30/18 06/30/18 06/30/18 Range/Units 11:14 11:14 12:16 WBC (3.8-10.6) k/uL Neutrophils # (1.3-7.7) k/uL Neutrophils # (Manual) (1.3-7.7) k/uL Lymphocytes # (1.0-4.8) k/uL Monocytes # (Manual) (0-1.0) k/uL Metamyelocytes # (Man) (0) k/uL Myelocytes # (Manual) (0) k/uL APTT (22.0-30.0) sec BUN 28 H (9-20) mg/dL Glucose 144 H (74-99) mg/dL POC Glucose (mg/dL) 145 H (75-99) mg/dL AST 68 H (17-59) U/L ALT 161 H (21-72) U/L Alkaline Phosphatase 226 H (38-126) U/L Total Protein 5.6 L (6.3-8.2) g/dL Albumin 3.3 L (3.5-5.0) g/dL LDL Cholesterol, Calc 124 H (0-99) mg/dL HDL Cholesterol 31 L (40-60) mg/dL 06/30/18 06/30/18 06/30/18 Range/Units 16:55 18:00 18:00 WBC 17.1 H (3.8-10.6) k/uL Neutrophils # 15.4 H (1.3-7.7) k/uL Neutrophils # (Manual) (1.3-7.7) k/uL Lymphocytes # 0.8 L (1.0-4.8) k/uL Monocytes # (Manual) (0-1.0) k/uL Metamyelocytes # (Man) (0) k/uL Myelocytes # (Manual) (0) k/uL APTT 21.9 L (22.0-30.0) sec BUN (9-20) mg/dL Glucose (74-99) mg/dL POC Glucose (mg/dL) 126 H (75-99) mg/dL AST (17-59) U/L ALT (21-72) U/L Alkaline Phosphatase (38-126) U/L Total Protein (6.3-8.2) g/dL Albumin (3.5-5.0) g/dL LDL Cholesterol, Calc (0-99) mg/dL HDL Cholesterol (40-60) mg/dL 06/30/18 07/01/18 07/01/18 Range/Units 21:01 05:46 09:00 WBC (3.8-10.6) k/uL Neutrophils # (1.3-7.7) k/uL Neutrophils # (Manual) (1.3-7.7) k/uL Lymphocytes # (1.0-4.8) k/uL Monocytes # (Manual) (0-1.0) k/uL Metamyelocytes # (Man) (0) k/uL Myelocytes # (Manual) (0) k/uL APTT (22.0-30.0) sec BUN 36 H (9-20) mg/dL Glucose 114 H (74-99) mg/dL POC Glucose (mg/dL) 162 H 138 H (75-99) mg/dL AST (17-59) U/L ALT (21-72) U/L Alkaline Phosphatase (38-126) U/L Total Protein (6.3-8.2) g/dL Albumin (3.5-5.0) g/dL LDL Cholesterol, Calc (0-99) mg/dL HDL Cholesterol (40-60) mg/dL 07/01/18 07/01/18 07/01/18 Range/Units 09:00 09:00 11:24 WBC 19.2 H (3.8-10.6) k/uL Neutrophils # (1.3-7.7) k/uL Neutrophils # (Manual) 15.10 H (1.3-7.7) k/uL Lymphocytes # (1.0-4.8) k/uL Monocytes # (Manual) 1.34 H (0-1.0) k/uL Metamyelocytes # (Man) 0.77 H (0) k/uL Myelocytes # (Manual) 0.58 H (0) k/uL APTT 31.6 H (22.0-30.0) sec BUN (9-20) mg/dL Glucose (74-99) mg/dL POC Glucose (mg/dL) 101 H (75-99) mg/dL AST (17-59) U/L ALT (21-72) U/L Alkaline Phosphatase (38-126) U/L Total Protein (6.3-8.2) g/dL Albumin (3.5-5.0) g/dL LDL Cholesterol, Calc (0-99) mg/dL HDL Cholesterol (40-60) mg/dL Microbiology - Last 24 Hours (Table) 06/29/18 04:36 Gram Stain - Final Sputum Sputum Culture - Final 06/27/18 16:05 Blood Culture - Preliminary Blood No Growth after 72 hours 06/28/18 03:18 Gram Stain - Final Sputum Sputum Culture - Final Assessment and Plan Plan: Assessment: 1 acute bilateral pneumonia with patchy airspace disease right more than left. This is likely a bacterial pneumonia. Consider staphylococcal pneumonia including MRSA knowing that the patient has been in a rehab facility and the patient has been exposed and infected with MRSA in the past. The patient clinically is feeling better. Clinically, the patient improved compared to yesterday while being on a combination of Levaquin and vancomycin. Final cultures and sensitivities reveal no growth. Legionella urine antigen was not detected. 06/30/2018 echocardiogram reveals global hypokinesia and severely impaired left ventricular systolic function with ejection fraction 20-25%. 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 Today's chest x-ray does show evidence of pulmonary edema. We' ll discontinue the vancomycin, continue Levaquin. Add Lasix 40 mg IV push every 12 hours. Add MEGA inhibitor. Consider beta surinder. On 07/01/2018 chest chest x-ray shows improvement in the aeration of the left upper lobe, will continue with IV diuretics, vancomycin was discontinued, cultures remain negative to date, the patient is improving, no fever no chills. No increased chest congestion. Patient remains on antibiotic coverage in the form of Levaquin, Legionella antigen was not detected in the urine. Patient had new onset A. fib RVR on 06/30/2018, was started on Cardizem drip, and heparin drip. He remains in A. fib with a controlled rate. Cardiology is following. 2 acute hypoxic respiratory failure secondary to above 3 acute systolic congestive heart failure, echocardiogram showed severely. Left ventricular function with an EF of 20-25% 4 atrial fibrillation with RVR, new onset 5 alcoholism 6 alcohol rehabilitation at [facility] 7 chronic back pain 8 deep brain stimulator for chronic back pain management 9 smoker Plan: Patient remains in A. fib, but the rate is better controlled, remains on Cardizem drip and heparin drip. And, denies any fever or chills, or worsening dyspnea, no worsening chest congestion. Cultures remain negative to date, yesterday we discontinue vancomycin, patient remains on Levaquin. Improving from pulmonary standpoint, chest x-ray shows improvement in the aeration of the left upper lobe. Continue IV diuretics, monitor labs, electrolytes, renal profile, daily weights, I&O's. We'll cut back his IV steroids. Continue to follow I performed a history & physical examination of the patient and discussed their management with my nurse practitioner, Darlene Wood. I reviewed the nurse practitioner's note and agree with the documented findings and plan of care. Lung sounds are positive for coarse crackles over bilateral lower lobes. The findings and the impression was discussed with the patient. I attest to the documentation by the nurse practitioner. Time with Patient: Less than 30
[2018-07-01] MEDS ORDERED: SPIRONOLACTONE 25 MG TAB PO SCH (12:00)
--- NOTE | 2018-07-01 14:31 | P.PN ---
Subjective Progress Note Date: 07/01/18 Mr. Bear is a 53-year-old male past medical history significant for significant alcohol abuse, chronic back pain, neuropathy, tumor of cervical spine with resection and chronic nicotine dependence. Patient presented to the hospital with symptoms of cough with associated congestion and shortness of breath. Patient was seen in consultation by Dr. Glez, and initiated on treatment for congestive heart failure of new onset. His EKG originally on presentation here showed a normal sinus rhythm, subsequently patient went into atrial fibrillation with rapid ventricular response, and for this reason he was transferred to the telemetry unit for further evaluation. Patient continues to be in atrial fibrillation today, his heart rate is in the 90s. He is currently on a Cardizem drip which we will discontinue. We will increase his dose of beta surinder. Patient did have an echocardiogram with Doppler study performed here which revealed an ejection fraction of 20-25%. Patient has been diuresing with IV Lasix although his weight is not reflective of this. White blood cell count 19.2, hemoglobin 13.4, platelet count 273. Sodium 138, potassium 4.0, BUN 36, creatinine 0.9. Was explained to the patient that he may need anticoagulation for stroke prevention. We will need to stop drinking alcohol because of the risk of bleeding. Objective - Vital Signs Vital signs: Vital Signs Temp 97 F L 07/01/18 08:00 Pulse 88 07/01/18 12:09 Resp 18 07/01/18 08:00 BP 128/74 07/01/18 08:00 Pulse Ox 91 L 07/01/18 08:31 Intake & Output 06/30/18 07/01/18 07/01/18 18:59 06:59 18:59 Intake Total 430 185.66 480 Balance 430 185.66 480 Weight 100.2 kg Intake: IV 250 Vancomycin 1,500 mg In 250 Sodium Chloride 0.9% 250 ml @ 125 mls/hr IVPB Q8H ERMELINDA Rx#:[id number] Intake, IV Titration 185.66 Amount Diltiazem 50 mg In Sodium 50 Chloride 0.9% 40 ml @ 7. 5 MG/HR 7.5 mls/hr IV . Q6H40M ERMELINDA Rx#:[id number] Heparin Sod,Pork in 0.45% 135.66 NaCl 25,000 unit In 0.45 % NaCl 1 500ml.bag @ 10 UNITS/KG/HR 19.95 mls/hr IV .Q24H ERMELINDA Rx#: [id number] Oral 180 480 Other: # Voids 4 - Exam PHYSICAL EXAMINATION: GENERAL: 53-year-old gentleman in no acute distress at the time of my examination HEENT: Head is atraumatic, normocephalic. Pupils equal, round. Sclera anicteric. Conjunctiva are clear. Mucous membranes of the mouth are moist. Neck is supple. There is no elevated jugular venous pressure.] bruit is heard. HEART EXAMINATION: Heart S1, S2 normal. No murmur or gallop heard. CHEST EXAMINATION: Reveal scattered coarse rhonchi throughout. ABDOMEN: Soft, nontender. Bowel sounds are heard. No organomegaly noted. EXTREMITIES: 2+ peripheral pulses with trace evidence of peripheral edema and no calf tenderness noted. NEUROLOGIC patient is awake, alert and oriented ?-3. . - Labs CBC & Chem 7: 07/01/18 09:00 07/01/18 09:00 Labs: Abnormal Lab Results - Last 24 Hours (Table) 06/30/18 06/30/18 06/30/18 Range/Units 11:14 16:55 18:00 WBC 17.1 H (3.8-10.6) k/uL Neutrophils # 15.4 H (1.3-7.7) k/uL Neutrophils # (Manual) (1.3-7.7) k/uL Lymphocytes # 0.8 L (1.0-4.8) k/uL Monocytes # (Manual) (0-1.0) k/uL Metamyelocytes # (Man) (0) k/uL Myelocytes # (Manual) (0) k/uL APTT (22.0-30.0) sec BUN (9-20) mg/dL Glucose (74-99) mg/dL POC Glucose (mg/dL) 126 H (75-99) mg/dL LDL Cholesterol, Calc 124 H (0-99) mg/dL HDL Cholesterol 31 L (40-60) mg/dL 06/30/18 06/30/18 07/01/18 Range/Units 18:00 21:01 05:46 WBC (3.8-10.6) k/uL Neutrophils # (1.3-7.7) k/uL Neutrophils # (Manual) (1.3-7.7) k/uL Lymphocytes # (1.0-4.8) k/uL Monocytes # (Manual) (0-1.0) k/uL Metamyelocytes # (Man) (0) k/uL Myelocytes # (Manual) (0) k/uL APTT 21.9 L (22.0-30.0) sec BUN (9-20) mg/dL Glucose (74-99) mg/dL POC Glucose (mg/dL) 162 H 138 H (75-99) mg/dL LDL Cholesterol, Calc (0-99) mg/dL HDL Cholesterol (40-60) mg/dL 07/01/18 07/01/18 07/01/18 Range/Units 09:00 09:00 09:00 WBC 19.2 H (3.8-10.6) k/uL Neutrophils # (1.3-7.7) k/uL Neutrophils # (Manual) 15.10 H (1.3-7.7) k/uL Lymphocytes # (1.0-4.8) k/uL Monocytes # (Manual) 1.34 H (0-1.0) k/uL Metamyelocytes # (Man) 0.77 H (0) k/uL Myelocytes # (Manual) 0.58 H (0) k/uL APTT 31.6 H (22.0-30.0) sec BUN 36 H (9-20) mg/dL Glucose 114 H (74-99) mg/dL POC Glucose (mg/dL) (75-99) mg/dL LDL Cholesterol, Calc (0-99) mg/dL HDL Cholesterol (40-60) mg/dL 07/01/18 Range/Units 11:24 WBC (3.8-10.6) k/uL Neutrophils # (1.3-7.7) k/uL Neutrophils # (Manual) (1.3-7.7) k/uL Lymphocytes # (1.0-4.8) k/uL Monocytes # (Manual) (0-1.0) k/uL Metamyelocytes # (Man) (0) k/uL Myelocytes # (Manual) (0) k/uL APTT (22.0-30.0) sec BUN (9-20) mg/dL Glucose (74-99) mg/dL POC Glucose (mg/dL) 101 H (75-99) mg/dL LDL Cholesterol, Calc (0-99) mg/dL HDL Cholesterol (40-60) mg/dL Microbiology - Last 24 Hours (Table) 06/29/18 04:36 Gram Stain - Final Sputum Sputum Culture - Final 06/27/18 16:05 Blood Culture - Preliminary Blood No Growth after 72 hours Assessment and Plan Plan: Assessment and plan #1 systolic congestive heart failure acute on chronic #2 cardiomyopathy with an ejection fraction of 20-25 % #3 acute bilateral pneumonia #4 alcoholism #5 nicotine dependence Plan We'll discontinue the IV heparin, patient has been approved for Eliquis which we will start at 5 mg one tablet by mouth twice a day. It has been explained to the patient the importance of complete cessation of alcohol use. We also took discussed the patient will need a further workup by cardiac catheterization down the road to rule out underlying coronary artery disease. This will be done as an outpatient. DNP note has been reviewed, I agree with a documented findings and plan of care. Patient was seen and examined.
--- NOTE | 2018-07-01 15:40 | P.PN ---
Subjective Progress Note Date: 07/01/18 Principal diagnosis: New onset decompensated Heart failure and AFib Patient was seen and examined. Patient went into A-Fib with RVR yesterday, HR around 150s, asymptomatic. Moved to Telemetry and started on Cardizem drip and Heparin drip. Patient reports improved breathing since starting Lasix yesterday. No chest pain or palpitations. No other complaints. Wanting to go home. Objective - Vital Signs Vital signs: Vital Signs Temp 97.8 F 07/01/18 12:00 Pulse 88 07/01/18 12:09 Resp 18 07/01/18 12:00 BP 148/90 07/01/18 12:00 Pulse Ox 96 07/01/18 12:00 Intake & Output 06/30/18 07/01/18 07/01/18 18:59 06:59 18:59 Intake Total 430 185.66 480 Balance 430 185.66 480 Weight 100.2 kg Intake: IV 250 Vancomycin 1,500 mg In 250 Sodium Chloride 0.9% 250 ml @ 125 mls/hr IVPB Q8H ERMELINDA Rx#:[id number] Intake, IV Titration 185.66 Amount Diltiazem 50 mg In Sodium 50 Chloride 0.9% 40 ml @ 7. 5 MG/HR 7.5 mls/hr IV . Q6H40M ERMELINDA Rx#:[id number] Heparin Sod,Pork in 0.45% 135.66 NaCl 25,000 unit In 0.45 % NaCl 1 500ml.bag @ 10 UNITS/KG/HR 19.95 mls/hr IV .Q24H ERMELINDA Rx#: [id number] Oral 180 480 Other: # Voids 4 - Exam General: non toxic, no distress, appears at stated age Derm: warm, dry Head: atraumatic, normocephalic, symmetric Eyes: EOMI, no lid lag, anicteric sclera Mouth: no lip lesion, mucus membranes moist Cardiovascular: S1S2 reg, no murmur, Irregularly irregular Lungs: Decreased breath sounds bilaterally, scattered crackles bilaterally ( improved), no accessory muscle use Abdominal: soft, nontender to palpation, no guarding, no appreciable organomegaly Ext: no gross muscle atrophy, no edema, no contractures Neuro: CN II-XI grossly intact, no focal neuro deficits Psych: Alert, oriented, appropriate affect - Labs CBC & Chem 7: 07/01/18 09:00 07/01/18 09:00 Labs: Abnormal Lab Results - Last 24 Hours (Table) 06/30/18 06/30/18 06/30/18 Range/Units 16:55 18:00 18:00 WBC 17.1 H (3.8-10.6) k/uL Neutrophils # 15.4 H (1.3-7.7) k/uL Neutrophils # (Manual) (1.3-7.7) k/uL Lymphocytes # 0.8 L (1.0-4.8) k/uL Monocytes # (Manual) (0-1.0) k/uL Metamyelocytes # (Man) (0) k/uL Myelocytes # (Manual) (0) k/uL APTT 21.9 L (22.0-30.0) sec BUN (9-20) mg/dL Glucose (74-99) mg/dL POC Glucose (mg/dL) 126 H (75-99) mg/dL 06/30/18 07/01/18 07/01/18 Range/Units 21:01 05:46 09:00 WBC (3.8-10.6) k/uL Neutrophils # (1.3-7.7) k/uL Neutrophils # (Manual) (1.3-7.7) k/uL Lymphocytes # (1.0-4.8) k/uL Monocytes # (Manual) (0-1.0) k/uL Metamyelocytes # (Man) (0) k/uL Myelocytes # (Manual) (0) k/uL APTT (22.0-30.0) sec BUN 36 H (9-20) mg/dL Glucose 114 H (74-99) mg/dL POC Glucose (mg/dL) 162 H 138 H (75-99) mg/dL 07/01/18 07/01/18 07/01/18 Range/Units 09:00 09:00 11:24 WBC 19.2 H (3.8-10.6) k/uL Neutrophils # (1.3-7.7) k/uL Neutrophils # (Manual) 15.10 H (1.3-7.7) k/uL Lymphocytes # (1.0-4.8) k/uL Monocytes # (Manual) 1.34 H (0-1.0) k/uL Metamyelocytes # (Man) 0.77 H (0) k/uL Myelocytes # (Manual) 0.58 H (0) k/uL APTT 31.6 H (22.0-30.0) sec BUN (9-20) mg/dL Glucose (74-99) mg/dL POC Glucose (mg/dL) 101 H (75-99) mg/dL Microbiology - Last 24 Hours (Table) 06/29/18 04:36 Gram Stain - Final Sputum Sputum Culture - Final 06/27/18 16:05 Blood Culture - Preliminary Blood No Growth after 72 hours Assessment and Plan Assessment: Assessment 53 year old M with PMH of EtOH abuse presents to the ED for cough and SOB. CXR confirms multifocal PNA. Patient admitted for IV antibiotics and for increased O2 requirements. Plan Systolic HF: New diagnosis. BNP 1810. Echo shows severe global hypokinesis, EF 20-25%, moderate pleural effusion. Started on Lasix 40 mg IV BID for diuresis yesterday. Started Lisinopril 10 mg PO daily yesterday. Metoprolol 50 mg PO BID and Aldactone 25mg PO daily started today. Daily weights. Monitor Ins and Outs. Keep K > 4 and Mg > 2. Telemetry monitoring. FU Cardiology Atrial Fibrillation: New onset. s/p Cardizem and Heparin drip. Likely related to systolic HF. Start Metoprolol 50 mg PO BID for rate control and Apixaban 5mg PO BID for AC (CHADVASC 2). Telemetry monitoring. Keep K > 4 and Mg > 2. FU TSH , Cardiology Community acquired pneumonia - CXR confirms multifocal bilateral airspace disease. CTA excluded PE (D-Dimer elevated to 1.40) but confirms findings similar to CXR but unable to exclude pulmonary edema. - Sputum Cx shows normal respiratory bridger. BCx 48H prelim no growth. Legionella UAg negative. - Pulm recs appreciated - Continue IV diuresis, decrease IV steroids. - CXR (07/01): BL interstitial process with multifocal areas of consolidation. - Plan: Continue O2 per NC to maintain O2 sat > 92%. Continue DuoNeb Q4H scheduled/PRN. Continue Levaquin 750mg PO daily, Vancomycin 1500 mg IV DC'c yesterday. Solu-Medrol decreased from 60 mg IV Q6H to 40 mg IV Q8H. FU Pulm. EtOH abuse: Last drink 30 days ago. Low risk for withdrawal. [facility] protocol with Ativan IV PRN for withdrawal. Continue Cymbalta 60 mg daily, Gabapentin 1200 mg PO TID. Continue MVI 1 tab PO daily, Thiamine 100 mg PO daily and Folic acid 1mg PO daily. Sinusitis: On physical exam. Continue Mucinex 600 mg PO BID, Claritin D PO BID. Leukocytosis: WBC uptrending from 10.9 to 19.3 with shift. Likely related to IV steroid use. Will continue to monitor. FU CBC Transaminitis: ALT 88 ALK-P 215. AST and T. Bili within normal limits. Likely related to heavy EtOH consumption. Will continue to monitor. FU CMP DVT/GI Prophylaxis: Pepcid 20 mg PO BID and Heparin 5000 units TID. (1) Pneumonia Current Visit: Yes Status: Acute Code(s): J18.9 - PNEUMONIA, UNSPECIFIED ORGANISM SNOMED Code(s): 015821360 (2) H/O ETOH abuse Current Visit: Yes Status: Acute Code(s): Z87.898 - PERSONAL HISTORY OF OTHER SPECIFIED CONDITIONS SNOMED Code(s): 327054446
[2018-07-01 16:26] LABS: Glucose,Whole Blood 137 mg/dL (75-99)
[2018-07-01] MEDS ORDERED: methylPREDNISolone SOD SUCCI 40 MG/ML 1 ML VIAL IV SCH (17:00)
[2018-07-01 18:04] VITALS: BP 130/64; PULSE 95; TEMP 98
[2018-07-01] MEDS ORDERED: METOPROLOL TARTRATE 50 MG TAB PO SCH (21:00)
[2018-07-01] MEDS ORDERED: APIXABAN 5 MG TAB PO SCH (21:00)
--- NOTE | 2018-07-02 13:07 | P.DS ---
Providers Date of admission: 06/27/18 18:37 Expected date of discharge: 07/01/18 Attending physician: Yady Brunner Consults: 06/27/18 18:36 Consult Physician Routine Consulting Provider: Nikki Herrera Consult Reason/Comments: Pneumonia, sepsis Do you want consulting provider notified?: Yes 06/30/18 12:13 Consult Physician Routine Consulting Provider: Phoenix Glez Consult Reason/Comments: severely impaired LV function Do you want consulting provider notified?: Yes Primary care physician: Stated None - Discharge Diagnosis(es) (1) Pneumonia Status: Acute (2) H/O ETOH abuse Status: Acute (3) Atrial fibrillation with RVR Status: Acute (4) Prerenal azotemia Status: Acute (5) Sinusitis Status: Acute (6) Systolic CHF, acute Status: Acute Hospital Course: Patient is a 53-year-old male with past medical history of alcohol abuse that initially presented to the hospital from [place] for cough and shortness of breath on June 27. In the ED chest x-ray confirmed multifocal bilateral airspace disease, cannot exclude pulmonary edema. Patient did have an elevated D-Dimer of 1.40. CTA chest excluded pulmonary embolus. For his pneumonia, patient was initially started on Ceftriaxone and Azithromycin IV for CAP. Pulmonary was consulted at this time, and patient's antibiotics was changed to Vancomycin and Levofloxacin IV. Vancomycin was later discontinued and patient was continued on Levofloxacin by mouth. Echocardiogram was ordered during his hospitalization and showed an ejection fraction of 20% with severe global hypokinesis and moderate pleural effusion. BNP was 1810. Patient was also noted to go into Atrial Fibrillation with RVR. Cardiology was consulted at this time, and patient was started on a Cardizem and Heparin drip. This was later discontinued, and patient was started on Eliquis 5 mg by mouth twice a day for anticoagulation with the CHADVASC score of 2 and Metoprolol 50 mg by mouth twice a day for rate control. Patient also received Lasix 40 mg IV 3, which resulted in a great improvement in his breathing. Patient was started on Metoprolol 50 mg by mouth twice a day, Lisinopril 10 mg daily, and Aldactone 25 mg by mouth daily. Patient had a leukocytosis with a WBC count of 19.2. This was thought to be secondary to IV steroid use. Patient's medication of Cymbalta and Gabapentin was continued for alcohol abuse. Claritin was started for sinusitis. Jeremy was called on 07/01/2018. Patient was later seen in the emergency department and readmitted. Patient reported that he was in the backyard of the hospital, that he never left, and admits to having coffee. Patient reported praying in the backyard. He denied any alcohol or drug use at that time. General: non toxic, no distress, appears at stated age Derm: warm, dry Head: atraumatic, normocephalic, symmetric Eyes: EOMI, no lid lag, anicteric sclera Mouth: no lip lesion, mucus membranes moist Cardiovascular: S1S2 reg, no murmur, Irregularly irregular Lungs: Decreased breath sounds bilaterally, no accessory muscle use Abdominal: soft, nontender to palpation, no guarding, no appreciable organomegaly Ext: no gross muscle atrophy, no edema, no contractures Neuro: CN II-XI grossly intact, no focal neuro deficits Psych: Alert, oriented, appropriate affect Pertinent Studies: CTA CXR Patient Condition at Discharge: Serious Plan - Discharge Summary Discharge Rx Participant: Yes New Discharge Prescriptions: No Action DULoxetine HCL [Cymbalta] 60 mg PO DAILY Gabapentin [Neurontin] 1,200 mg PO TID Apixaban [Eliquis] 5 mg PO BID #60 tab Furosemide [Lasix] 40 mg PO DAILY #30 tab Levofloxacin [Levaquin] 750 mg PO DAILY #3 tab Lisinopril [Zestril] 10 mg PO DAILY #30 tab Loratadine [Claritin] 5 mg PO Q12HR PRN tab PRN Reason: Congestion Spironolactone [Aldactone] 25 mg PO DAILY #30 tab Metoprolol Tartrate [Lopressor] 75 mg PO BID #60 tablet Discharge Medication List DULoxetine HCL [Cymbalta] 60 mg PO DAILY 06/22/18 [History] Gabapentin [Neurontin] 1,200 mg PO TID 06/22/18 [History] Apixaban [Eliquis] 5 mg PO BID #60 tab 07/02/18 [Rx] Furosemide [Lasix] 40 mg PO DAILY #30 tab 07/02/18 [Rx] Levofloxacin [Levaquin] 750 mg PO DAILY #3 tab 07/02/18 [Rx] Lisinopril [Zestril] 10 mg PO DAILY #30 tab 07/02/18 [Rx] Loratadine [Claritin] 5 mg PO Q12HR PRN tab 07/02/18 [Rx] Metoprolol Tartrate [Lopressor] 75 mg PO BID #60 tablet 07/02/18 [Rx] Spironolactone [Aldactone] 25 mg PO DAILY #30 tab 07/02/18 [Rx] Follow up Appointment(s)/Referral(s): None,Stated [Primary Care Provider] - 1 Week Phoenix Glez MD [STAFF PHYSICIAN] - 2 Weeks Patient Instructions/Handouts: Pneumonia (DC) Activity/Diet/Wound Care/Special Instructions: Kylee script filled in [facility] - $3.70 copay NO alcohol use. Smoking cessation information provided. Regular cardiac diet. Activity as tolerated. Discharge Disposition: Left Against Medical Advice
== END 2018-07-01 22:49 | disposition left against medical advice (07) | DRG 193 ==
LOC: EC 15:17 → 4MS4W 18:37 → EEVIPCON 18:37 → 6SEL 06-30 16:31
PROVIDERS: ADMIT Internal Medicine; ATTEND Internal Medicine
DX: J15.9 Unspecified bacterial pneumonia (principal); I50.23 Acute on chronic systolic (congestive) heart failure; J96.01 Acute respiratory failure with hypoxia; I42.6 Alcoholic cardiomyopathy; F10.20 Alcohol dependence, uncomplicated; F17.200 Nicotine dependence, unspecified, uncomplicated; F32.9 Major depressive disorder, single episode, unspecified; F43.10 Post-traumatic stress disorder, unspecified; G89.29 Other chronic pain; I48.91 Unspecified atrial fibrillation; R79.1 Abnormal coagulation profile; G62.9 Polyneuropathy, unspecified; M54.9 Dorsalgia, unspecified; F41.9 Anxiety disorder, unspecified; J32.9 Chronic sinusitis, unspecified; R79.89 Other specified abnormal findings of blood chemistry; Z79.899 Other long term (current) drug therapy; Z86.14 Personal history of Methicillin resistant Staphylococcus aureus infection; Z88.5 Allergy status to narcotic agent
CPT/HCPCS: 36415; 71046; 71275; 80048; 80053; 80061; 80202; 82550; 82553; 83605; 83735; 83880; 84484; 85025; 85027; 85379; 85610; 85730; 87040; 87070; 87205; 87449; 93005; 93306; 94640; 94760; 96365; 96366; 96375; 99291

== ENCOUNTER 2018-07-01 21:06 | Observation (INO) | payer MEDICARE ==
[2018-07-01 21:38] VITALS: RESP 18
--- NOTE | 2018-07-01 22:27 | ED ---
General Adult HPI - General Chief complaint: Recheck/Abnormal Lab/Rx Stated complaint: Pneumonia Time Seen by Provider: 07/01/18 22:02 Source: patient Mode of arrival: ambulatory Limitations: no limitations - History of Present Illness Initial comments: Julio C is a 53-year-old male who was admitted to our hospital on June 27 for bilateral pneumonia, decompensated heart failure in a new onset of atrial fibrillation with RVR. Patient has been on her selective unit being treated, he 's been improving significantly with the plan for discharge home tomorrow. This evening the patient decided to go for her walker on the hospital grounds. He reports that he walked to the cafeteria and had some coffee, he then visited the gift shop and walked around the hospital and outside to the Gardens. Patient reports that he just needed to get some fresh air because he is feeling very stressed out. Patient reports that yesterday while being in the hospital he was told by his fiance that she was ending a relationship and this is causing him significant emotional distress. Patient reports that he walked around the grounds and then decided to return to his room and upon return was advised by nursing staff the due to his elopement from the hospital he had been discharged and needed to be readmitted to the emergency department so he came here for readmission. Patient states that aside from the personal and emotional stresses undergoing he has no complaints. He states that he is returning for admission so that when he is discharged he gets all of his proper medications and can have proper follow-up. - Related Data Home Medications Medication Instructions Recorded Confirmed DULoxetine HCL [Cymbalta] 60 mg PO DAILY 06/22/18 07/01/18 Gabapentin [Neurontin] 1,200 mg PO TID 06/22/18 07/01/18 Previous Rx's Medication Instructions Recorded Naproxen [Naprosyn] 500 mg PO BID #20 tablet 06/22/18 Allergies Allergy/AdvReac Type Severity Reaction Status Date / Time hydromorphone [From Dilaudid] AdvReac psychosis Verified 07/01/18 22:25 Review of Systems ROS Statement: Those systems with pertinent positive or pertinent negative responses have been documented in the HPI. ROS Other: All systems not noted in ROS Statement are negative. Past Medical History Past Medical History: Atrial Fibrillation, Heart Failure, Neurologic Disorder, Pneumonia Additional Past Medical History / Comment(s): Alcoholism and the patient claims that he hasn't drank alcohol for a month and he was undergoing rehabilitation at [place]. 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 Chronic anxiety. Chronic depression. Chronic smoker. 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 Past Psychological History: Anxiety, Bipolar, Depression, PTSD Smoking Status: Current every day smoker Past Alcohol Use History: Abuse, Daily Past Drug Use History: None Reported - Past Family History Family Additional Family Medical History / Comment(s): Denies history of premature CAD General Exam Limitations: no limitations General appearance: alert, in no apparent distress Head exam: Present: atraumatic, normocephalic Eye exam: Present: normal appearance, PERRL ENT exam: Present: normal exam Neck exam: Present: normal inspection Respiratory exam: Absent: respiratory distress Cardiovascular Exam: Present: tachycardia, irregular rhythm GI/Abdominal exam: Present: soft. Absent: distended Rectal exam: Present: deferred Extremities exam: Present: normal inspection, pedal edema Back exam: Present: normal inspection Neurological exam: Present: alert, oriented X3 Psychiatric exam: Present: normal affect, depressed Skin exam: Present: warm, dry Course Vital Signs 07/01/18 07/01/18 21:35 22:40 Temperature 98.2 F Pulse Rate 75 115 H Respiratory 18 18 Rate Blood Pressure 141/100 145/84 O2 Sat by Pulse 95 97 Oximetry Medical Decision Making - Medical Decision Making Patient was seen and evaluated, history is obtained from the patient and review of his medical record up until today. She has been out of his room for approximately an hour and half, he did have some coffee which contain caffeine, he is noted to be mildly tachycardic in atrial fibrillation upon his arrival to the emergency department. The patient has obtained a very thorough evaluation and treatment during his 5 day admission. At this time I don't feel there is any new or acute problems. I discussed this patient with Dr. Viera who agrees with the plan for a kneeing a serum alcohol and a urine drug screen. No further new interventions or evaluations indicated this time. Dr Viera accepts the patient to his service, considering the patient did have a plan for discharge tomorrow I will place the patient in observation. - Lab Data Lab Results 07/01/18 Range/Units 21:55 Urine Opiates Screen Not Detected (NotDetected) Ur Oxycodone Screen Not Detected (NotDetected) Urine Methadone Screen Not Detected (NotDetected) Ur Propoxyphene Screen Not Detected (NotDetected) Ur Barbiturates Screen Not Detected (NotDetected) U Tricyclic Antidepress Not Detected (NotDetected) Ur Phencyclidine Scrn Not Detected (NotDetected) Ur Amphetamines Screen Not Detected (NotDetected) U Methamphetamines Scrn Not Detected (NotDetected) U Benzodiazepines Scrn Detected H (NotDetected) Urine Cocaine Screen Not Detected (NotDetected) U Marijuana (THC) Screen Not Detected (NotDetected) Disposition Clinical Impression: Atrial fibrillation with RVR Disposition: ADMITTED IP TO THIS HOSP Decision Time: 22:28
[2018-07-01] MEDS ORDERED: NALOXONE 0.4 MG/ML 1 ML VIAL IV PRN (22:28)
[2018-07-01 22:53] LABS: Amphetamine Screen,Urine Not Detected (NotDetected); Barbiturate Screen,Urine Not Detected (NotDetected); Benzodiazepines Screen,Urine Detected (NotDetected); Cocaine Screen,Urine Not Detected (NotDetected); Methadone Screen, Urine Not Detected (NotDetected); Opiate Screen,Urine Not Detected (NotDetected); Oxycodone Screen, Urine Not Detected (NotDetected); Phencyclidine Screen,Urine Not Detected (NotDetected); Tricyclic Antidepressant,Urine Not Detected (NotDetected); Urn Cannabinoid Scrn Not Detected (NotDetected)
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
[2018-07-02] MEDS ORDERED: NALOXONE 0.4 MG/ML 1 ML VIAL IV PRN (00:50)
[2018-07-02] MEDS ORDERED: LORATADINE 10 MG TAB PO PRN (00:54)
[2018-07-02] MEDS: APIXABAN 5 MG TAB PO SCH ×2 (03:01→09:30)
[2018-07-02] MEDS: METOPROLOL TARTRATE 50 MG TAB PO SCH ×2 (03:01→09:30)
[2018-07-02 06:36] VITALS: TEMP 98.8
[2018-07-02 07:03] LABS: HCT 44.3 % (39.0-53.0); HGB 14.4 gm/dL (13.0-17.5); MCH 30.9 pg (25.0-35.0); MCHC 32.5 g/dL (31.0-37.0); MCV 94.9 fL (80.0-100.0); Platelet Count 290 k/uL (150-450); RBC 4.67 m/uL (4.30-5.90); RDW 13.5 % (11.5-15.5)
[2018-07-02 07:20] LABS: Anion Gap 8 mmol/L; Blood Urea Nitrogen 33 mg/dL (9-20); Calcium 8.7 mg/dL (8.4-10.2); Carbon Dioxide 31 mmol/L (22-30); Chloride 100 mmol/L (98-107); Glucose 131 mg/dL (74-99); Sodium 139 mmol/L (137-145)
[2018-07-02 07:55] LABS: Band Neutrophils % 3 %; Eosinophils # (M) 0.18 k/uL (0-0.7); Lymphocytes # (M) 1.08 k/uL (1.0-4.8); Metamyelocytes # (M) 0.54 k/uL (0); Metamyelocytes % 3 %; Monocytes # (M) 0.72 k/uL (0-1.0); Myelocytes # (M) 0.36 k/uL (0); Myelocytes % 2 %; Neutrophils % (M) 84 %; Nucleated Red Blood Cells 0 /100 WBC (0-0); Promyelocytes # (M) 0.18 k/uL (0); Promyelocytes % 1 %; Total Cells Counted 200
[2018-07-02 07:57] LABS: Toxic Granulation Present
[2018-07-02 07:58] LABS: Anisocytosis (M) Present; Poikilocytosis (M) Present
[2018-07-02] MEDS ORDERED: LEVOFLOXACIN 750 MG TAB PO SCH (09:00)
[2018-07-02] MEDS ORDERED: SPIRONOLACTONE 25 MG TAB PO SCH (09:00)
[2018-07-02] MEDS ORDERED: LISINOPRIL 10 MG TAB PO SCH (09:00)
[2018-07-02] MEDS ORDERED: GABAPENTIN 400 MG CAP PO SCH (09:00)
[2018-07-02] MEDS ORDERED: FUROSEMIDE 40 MG TAB PO SCH (09:00)
[2018-07-02] MEDS ORDERED: DULoxetine HCL 60 MG CAPSULE.DR PO SCH (09:00)
--- NOTE | 2018-07-02 09:15 | P.PN ---
Subjective Progress Note Date: 07/02/18 Principal diagnosis: A Fib with RVR Patient presents back to the ED after elopement yesterday. He was diagnosed with new onset CHF and atrial fibrillation previously. Also on PO Abx for pneumonia. Patient reports improvement in breathing since starting IV diuresis. He denies chest pain, shortness of breath, or palpitations. Objective - Vital Signs Vital signs: Vital Signs Temp 98.8 F 07/02/18 06:35 Pulse 105 H 07/02/18 08:35 Resp 18 07/02/18 08:35 BP 121/85 07/02/18 08:35 Pulse Ox 96 07/02/18 08:35 Intake & Output 07/01/18 07/02/18 07/02/18 18:59 06:59 18:59 Weight 99.79 kg - Exam General: non toxic, no distress, appears at stated age Derm: warm, dry Head: atraumatic, normocephalic, symmetric Eyes: EOMI, no lid lag, anicteric sclera Mouth: no lip lesion, mucus membranes moist Cardiovascular: S1S2 reg, no murmur, Irregularly irregular Lungs: Decreased breath sounds bilaterally, no accessory muscle use Abdominal: soft, nontender to palpation, no guarding, no appreciable organomegaly Ext: no gross muscle atrophy, no edema, no contractures Neuro: CN II-XI grossly intact, no focal neuro deficits Psych: Alert, oriented, appropriate affect - Labs CBC & Chem 7: 07/02/18 06:47 07/02/18 06:47 Labs: Abnormal Lab Results - Last 24 Hours (Table) 07/01/18 07/02/18 07/02/18 Range/Units 21:55 06:47 06:47 WBC 18.0 H (3.8-10.6) k/uL Neutrophils # (Manual) 15.60 H (1.3-7.7) k/uL Metamyelocytes # (Man) 0.54 H (0) k/uL Myelocytes # (Manual) 0.36 H (0) k/uL Promyelocytes # (Man) 0.18 H (0) k/uL Carbon Dioxide 31 H (22-30) mmol/L BUN 33 H (9-20) mg/dL Glucose 131 H (74-99) mg/dL U Benzodiazepines Scrn Detected H (NotDetected) Assessment and Plan Assessment: Assessment 53 year old M with PMH of EtOH abuse presents to the ED for cough and SOB. CXR confirms multifocal PNA. Patient admitted for management of pneumonia. Found to have a new onset HF and A-Fib with RVR while hospitalized. Plan 1. Systolic HF: New diagnosis. BNP 1810. Echo shows severe global hypokinesis, EF 20-25%, moderate pleural effusion. Recieved 3 doses of Lasix 40 mg IV 06/30-07/01 , will start Lasix 40 mg PO daily. Continue Lisinopril 10 mg PO daily, Metoprolol 50 mg PO BID and Aldactone 25mg PO daily. Daily weights. Monitor Ins and Outs. Keep K > 4 and Mg > 2. Telemetry monitoring. 2. Atrial Fibrillation: New onset. s/p Cardizem and Heparin drip. Likely related to systolic HF. Continue Metoprolol 50 mg PO BID for rate control and Apixaban 5mg PO BID for AC (CHADVASC 2). Telemetry monitoring. Keep K > 4 and Mg > 2. Discussed with RRT Mess from Cardiology, patient can FU with Dr. Shaw outPT. FU TSH 3. Pre-renal azotemia: BUN 33 Cr 0.90. Likely due to dehydration from fluid restriction, CHF and Lasix. Optimize HF medications. Will avoid fluids due to cardiac status. Continue to monitor. 4. Community acquired pneumonia: CXR confirms multifocal bilateral airspace disease. CTA excluded PE (D-Dimer elevated to 1.40) but confirms findings similar to CXR but unable to exclude pulmonary edema. Sputum Cx shows normal respiratory bridger. BCx 96H prelim no growth. Legionella UAg negative. CXR (07/01) shows BL interstitial process with multifocal areas of consolidation. Continue O2 per NC to maintain O2 sat > 92%. Recieved 4 days of Abx previously, will continue Levaquin 750mg PO daily for another 3 days. 5. Leukocytosis: WBC 18. Downtrending from previous admission. Likely related to IV steroid use. Monitor. 6. EtOH abuse: Last drink 30 days ago. Low risk for withdrawal. Continue Cymbalta 60 mg daily, Gabapentin 1200 mg PO TID. 7. Sinusitis: On physical exam. Claritin 5mg PO BID. 8. DVT/GI Prophylaxis: Eliquis 5mg PO BID. 9. Dispo: Patient OK for DC today. Will need FU with Dr. Shaw within 1 week of DC for adjustment of Metoprolol and further workup of new-onset HF. Advised to FU with PCP within 1-2 days of DC. Will need CXR in 1 week to check for resolution of PNA. Advised to avoid coffee and EtOH. Advised medication compliance. Patient verbalized understanding of the plan.
--- NOTE | 2018-07-02 10:35 | P.DS ---
Providers Date of admission: 07/01/18 22:28 Expected date of discharge: 07/02/18 Attending physician: Yennifer Viera MD Primary care physician: Stated None - Discharge Diagnosis(es) (1) Atrial fibrillation with RVR Current Visit: Yes Status: Acute (2) Systolic CHF, acute Current Visit: Yes Status: Acute (3) Prerenal azotemia Current Visit: Yes Status: Acute (4) CAP (community acquired pneumonia) Current Visit: Yes Status: Acute (5) Alcohol abuse Current Visit: Yes Status: Acute (6) Sinusitis Current Visit: Yes Status: Acute (7) Leukocytosis Current Visit: Yes Status: Acute Hospital Course: Patient is a 53-year-old male with past medical history of alcohol abuse that initially presented to the hospital from [facility] for cough and shortness of breath on June 27. In the ED chest x-ray confirmed multifocal bilateral airspace disease, cannot exclude pulmonary edema. Patient did have an elevated D-Dimer of 1.40. CTA chest excluded pulmonary embolus. For his pneumonia, patient was initially started on Ceftriaxone and Azithromycin IV for CAP. Pulmonary was consulted at this time, and patient's antibiotics was changed to Vancomycin and Levofloxacin IV. Vancomycin was later discontinued and patient was continued on Levofloxacin by mouth. Patient was advised to continue levofloxacin 750 mg by mouth daily for another 3 days on discharge to complete a total of 7 days. Echocardiogram was ordered during his hospitalization and showed an ejection fraction of 20% with severe global hypokinesis and moderate pleural effusion. BNP was 1810. Patient was also noted to go into Atrial Fibrillation with RVR. Cardiology was consulted at this time, and patient was started on a Cardizem and Heparin drip. This was later discontinued, and patient was started on Eliquis 5 mg by mouth twice a day for anticoagulation with the CHADVASC score of 2 and Metoprolol 50 mg by mouth twice a day for rate control. Patient also received Lasix 40 mg IV 3, which resulted in a great improvement in his breathing. Patient was eventually transitioned to Lasix 40 mg by mouth daily, and continued on Metoprolol 50 mg by mouth twice a day, Lisinopril 10 mg daily, and Aldactone 25 mg by mouth daily. Patient had a leukocytosis with a WBC count of 18 on discharge. This was thought to be secondary to IV steroid use on previous admission. Patient's medication of Cymbalta and Gabapentin was continued for alcohol abuse. Claritin was started for sinusitis. Patient was advised to follow-up with Dr. Shaw within 1 week of discharge for adjustment of Metoprolol and further workup of new onset heart failure. Patient was advised to follow-up with his primary care provider within 1-2 days of discharge. Patient was advised that he would need to obtain a chest x-ray in 1 week to check for the resolution of his pneumonia. Patient was advised to obtain a CBC and CMP to check for the resolution of his leukocytosis and prerenal azotemia. Patient was advised to avoid coffee and alcohol. Patient verbalized understanding of the plan. General: non toxic, no distress, appears at stated age Derm: warm, dry Head: atraumatic, normocephalic, symmetric Eyes: EOMI, no lid lag, anicteric sclera Mouth: no lip lesion, mucus membranes moist Cardiovascular: S1S2 reg, no murmur, Irregularly irregular Lungs: Decreased breath sounds bilaterally, no accessory muscle use Abdominal: soft, nontender to palpation, no guarding, no appreciable organomegaly Ext: no gross muscle atrophy, no edema, no contractures Neuro: CN II-XI grossly intact, no focal neuro deficits Psych: Alert, oriented, appropriate affect Total 30 minutes was spent performing this complex discharge. Pertinent Studies: Echo CXR CTA Chest Patient Condition at Discharge: Stable Plan - Discharge Summary New Discharge Prescriptions: New Apixaban [Eliquis] 5 mg PO BID #60 tab Furosemide [Lasix] 40 mg PO DAILY #30 tab Levofloxacin [Levaquin] 750 mg PO DAILY #3 tab Lisinopril [Zestril] 10 mg PO DAILY #30 tab Loratadine [Claritin] 5 mg PO Q12HR PRN tab PRN Reason: Congestion Metoprolol Tartrate [Lopressor] 50 mg PO BID #60 tab Spironolactone [Aldactone] 25 mg PO DAILY #30 tab Continue DULoxetine HCL [Cymbalta] 60 mg PO DAILY Gabapentin [Neurontin] 1,200 mg PO TID Discontinued Naproxen [Naprosyn] 500 mg PO BID #20 tablet Discharge Medication List DULoxetine HCL [Cymbalta] 60 mg PO DAILY 06/22/18 [History] Gabapentin [Neurontin] 1,200 mg PO TID 07/24/18 [History] Apixaban [Eliquis] 5 mg PO BID #60 tab 07/02/18 [Rx] Furosemide [Lasix] 40 mg PO DAILY #30 tab 07/02/18 [Rx] Levofloxacin [Levaquin] 750 mg PO DAILY #3 tab 07/02/18 [Rx] Lisinopril [Zestril] 10 mg PO DAILY #30 tab 07/02/18 [Rx] Loratadine [Claritin] 5 mg PO Q12HR PRN tab 07/02/18 [Rx] Metoprolol Tartrate [Lopressor] 50 mg PO BID #60 tab 07/02/18 [Rx] Spironolactone [Aldactone] 25 mg PO DAILY #30 tab 07/02/18 [Rx] Follow up Appointment(s)/Referral(s): Kojo Ortiz MD [STAFF PHYSICIAN] - 1-2 Days Quan Shaw MD [STAFF PHYSICIAN] - 1 Week Ambulatory/Diagnostic Orders: Complete Blood Count w/diff [LAB.AMB] Time Frame: 1 Week, Location: None Selected Comprehensive Metabolic Panel [LAB.AMB] Time Frame: 1 Week, Location: None Selected XR chest 2V [RAD.AMB] Time Frame: 1 Week, Location: None Selected Activity/Diet/Wound Care/Special Instructions: Diet: HEART healthy. Low salt diet. Avoid alcohol and caffeine. Please follow up with your primary care provider within 1-2 days of discharge. If you are unable to, an appointment with Dr. Ortiz will be made for you. Please obtain a CBC, BMP and Chest XRay within 1 week of discharge. Please follow up the results with your primary care provider. Please follow up with Dr. Shaw within 1 week of discharge. Appointment details will be provided to you. Discharge Disposition: HOME SELF-CARE Pending Studies Pending Results: Need to follow up on TSH. Patient advised to obtain CXR in 1 week (resolution of PNA), CBC (resolution of leukocytosis) and CMP (resolution of prerenal azotemia).
[2018-07-02 11:04] VITALS: BP 146/99; PULSE 113
== END 2018-07-02 15:13 | disposition home or self-care (01) ==
LOC: EC 21:06 → 6SEL 22:28
PROVIDERS: ADMIT Internal Medicine; ATTEND Internal Medicine
DX: I48.91 Unspecified atrial fibrillation (principal); J18.9 Pneumonia, unspecified organism; I50.21 Acute systolic (congestive) heart failure; I11.0 Hypertensive heart disease with heart failure; F10.20 Alcohol dependence, uncomplicated; J32.9 Chronic sinusitis, unspecified; F31.9 Bipolar disorder, unspecified; F41.9 Anxiety disorder, unspecified; F43.10 Post-traumatic stress disorder, unspecified; R79.89 Other specified abnormal findings of blood chemistry; M54.9 Dorsalgia, unspecified; G89.29 Other chronic pain; F17.200 Nicotine dependence, unspecified, uncomplicated; G62.9 Polyneuropathy, unspecified; Z63.0 Problems in relationship with spouse or partner; Z79.899 Other long term (current) drug therapy; Z79.1 Long term (current) use of non-steroidal anti-inflammatories (NSAID); Z88.5 Allergy status to narcotic agent; Z86.14 Personal history of Methicillin resistant Staphylococcus aureus infection
CPT/HCPCS: 99284 ×2; 36415; 80048; 84443; 85025; 80306; 80320; G0378 ×2